=== PATIENT | male | born 1970 | race Two or more races ===

== ENCOUNTER 2021-09-17 10:18 | Emergency (ER) | payer MEDICAID ==
[~2021-09-17] VITALS: Ht 177.8 cm; Wt 104.3 kg
[2021-09-17 11:06] LABS: Basophils # (auto) 0.1 10 ^3/uL (0-0.2); Basophils % (auto) 0.7 % (0.0-2.0); Mean Corpuscular Hemoglobin 29.9 pg (28.0-32.0); Monocytes # (auto) 0.6 10 ^3/uL (0-1.3)
[2021-09-17 11:08] LABS: Eosinophils # (auto) 0.5 10 ^3/uL (0-0.8); Eosinophils % (auto) 5.9 % (0.0-7.0); Hematocrit 43.5 % (41.0-53.0); Lymphocytes # (auto) 2.5 10 ^3/uL (0.4-5.4); Lymphocytes % (auto) 32.8 % (10.0-50.0); Mean Corpuscular Hgb Conc. 34.5 g/dL (32.0-36.0); Mean Corpuscular Volume 86.8 fL (80.0-100.0); Monocytes % (auto) 8.2 % (0.0-12.0); Neutrophils % (auto) 52.4 % (37.0-80.0); Nucleated Red Blood Cells % 0.3 %; Red Blood Cells 5.01 10^6/uL (4.5-5.90); Red Cell Distribution Width 13.9 % (11.8-14.3); White Blood Cell 7.7 10^3/uL (4.4-10.8)
[2021-09-17 11:33] LABS: Albumin 3.7 g/dL (3.4-5.0); Calcium 8.6 mg/dL (8.5-10.1)
[2021-09-17 11:37] LABS: BUN/Creatinine Ratio 16.5; Bilirubin, Total 0.8 mg/dL (0.2-1.0); Total Protein 7.8 g/dL (6.4-8.2)
[2021-09-17 14:00] VITALS: BP 118/74
== END 2021-09-17 14:14 | disposition home or self-care (01) ==
LOC: EDBD 10:18 → ER 10:18
DX: R07.89 Other chest pain (principal); F41.9 Anxiety disorder, unspecified; R11.2 Nausea with vomiting, unspecified; J44.9 Chronic obstructive pulmonary disease, unspecified; M10.9 Gout, unspecified; E78.5 Hyperlipidemia, unspecified; I10 Essential (primary) hypertension; I25.2 Old myocardial infarction; Z95.1 Presence of aortocoronary bypass graft
CPT/HCPCS: 36415; 71045; 80053; 83735; 84484; 85025; 93005

== ENCOUNTER 2024-01-12 10:57 | Inpatient (IN) | payer MEDICAID ==
[~2024-01-12] VITALS: Ht 172.7 cm; Wt 91.5 kg
[2024-01-12] MEDS: ONDANSETRON HCL 4 MG/2 ML VIAL IV ONE (11:15)
[2024-01-12 11:32] LABS: Basophils # (auto) 0 10 ^3/uL (0-0.2); Basophils % (auto) 0.3 % (0.0-2.0); Eosinophils # (auto) 0.3 10 ^3/uL (0-0.8); Hematocrit 46.4 % (41.0-53.0); Hemoglobin 15.8 g/dL (13.5-17.5); Lymphocytes # (auto) 2.3 10 ^3/uL (0.4-5.4); Lymphocytes % (auto) 27.4 % (10.0-50.0); Mean Corpuscular Hemoglobin 30.6 pg (28.0-32.0); Mean Corpuscular Hgb Conc. 34.1 g/dL (32.0-36.0); Mean Corpuscular Volume 89.6 fL (80.0-100.0); Monocytes # (auto) 0.8 10 ^3/uL (0-1.3); Neutrophils # (auto) 4.9 10 ^3/uL (1.6-8.6); Neutrophils % (auto) 58.3 % (37.0-80.0); Nucleated Red Blood Cells % 0.1 %; Red Blood Cells 5.18 10^6/uL (4.5-5.90); Red Cell Distribution Width 13.3 % (11.8-14.3); White Blood Cell 8.4 10^3/uL (4.4-10.8)
[2024-01-12 11:51] LABS: Alanine Aminotransferase 30 U/L (7-40); Albumin 4.6 g/dL (3.2-4.8); Alkaline Phosphatase 65 U/L (46-116); Anion Gap 5 (5-15); Aspartate Aminotransferase 20 U/L (13-40); BUN/Creatinine Ratio 23.3 (10.0-20.0); Blood Urea Nitrogen 27 mg/dL (9-23); Carbon Dioxide 29 mmol/L (20-30); Chloride 107 mmol/L (98-107); Glucose 105 mg/dL (74-106); Potassium 3.6 mmol/L (3.5-5.1); Sodium 141 mmol/L (136-145)
[2024-01-12 11:52] LABS: Bilirubin, Direct 0.4 mg/dL (<0.3); Bilirubin, Total 1.1 mg/dL (0.2-1.0); Total Protein 7.2 g/dL (5.7-8.2)
[2024-01-12 11:55] VITALS: PULSE 60; RESP 14; O2SAT 97
[2024-01-12 12:09] LABS: Lipase 61 U/L (12-53)
[2024-01-12 12:10] LABS: Magnesium 1.9 mg/dL (1.6-2.6)
[2024-01-12] MEDS ORDERED: MORPHINE SULFATE INJ 2 MG/ml SYRG IV PRN (14:30)
[2024-01-12] MEDS ORDERED: NITROGLYCERIN 0.4 MG SL TAB SL PRN (14:30)
[2024-01-12] MEDS ORDERED: ONDANSETRON HCL 4 MG/2 ML VIAL IV PRN (14:30)
[2024-01-12] MEDS ORDERED: ACETAMINOPHEN 325 MG TAB PO PRN (14:30)
[2024-01-12] MEDS ORDERED: OMEP20TA PO (20:07)
[2024-01-12] MEDS ORDERED: LISI-713 PO (20:10)
[2024-01-12] MEDS ORDERED: AML5T PO (20:10)
[2024-01-12] MEDS ORDERED: CHLO25TA2 PO (20:14)
[2024-01-12] MEDS ORDERED: SIMV-268 PO (20:14)
[2024-01-12] MEDS ORDERED: FLUO20TA36 PO (20:14)
[2024-01-12] MEDS ORDERED: ASPI81CH59 PO (20:14)
[2024-01-12] MEDS ORDERED: CARV12.544 PO (20:14)
[2024-01-12] MEDS ORDERED: ALL100T PO (20:14)
[2024-01-12] MEDS ORDERED: ALLO100T PO (21:08)
[2024-01-12] MEDS ORDERED: AMLO1TAB23 PO (21:08)
[2024-01-12] MEDS ORDERED: SIMV20TA20 PO (21:08)
[2024-01-12] MEDS ORDERED: LISI40TA16 PO (21:08)
[2024-01-12] MEDS ORDERED: FLUO20CA90 PO (21:08)
[2024-01-12] MEDS ORDERED: AMLO1TAB22 PO (21:08)
[2024-01-12] MEDS ORDERED: FURO40TA4 PO (21:08)
[2024-01-12] MEDS ORDERED: ASPI-325 PO (21:08)
[2024-01-12] MEDS: SODIUM CHLOR 0.9% PF (SALINE LOCK) 10ML VIAL/SYR IV SCH (22:00)
[2024-01-13] VITALS (8 sets, daily range): BP systolic 113–137; BP diastolic 76–96; PULSE 60–78; RESP 17–21; TEMP 97.7–98.3; O2SAT 93–97
[2024-01-13] MEDS: ENOXAPARIN SOD 40 MG/0.4 ML SYRINGE SC SCH (10:02)
[2024-01-13] MEDS: HYDROcodone-ACET 5/325MG TAB PO PRN (13:27)
[2024-01-13] MEDS: TEMAZEPAM 15 MG CAP PO ONE (23:30)
[2024-01-14] VITALS (9 sets, daily range): BP systolic 102–140; BP diastolic 77–99; PULSE 62–80; RESP 17–19; TEMP 97.5–98.2; O2SAT 93–96
[2024-01-14] MEDS: ADENOSINE 80 MG in GIVE UN-DILUTED 0 ML IV STA (10:25)
[2024-01-14 11:57] LABS: Basophils # (auto) 0 10 ^3/uL (0-0.2); Basophils % (auto) 0.4 % (0.0-2.0); Eosinophils # (auto) 0.3 10 ^3/uL (0-0.8); Eosinophils % (auto) 3.5 % (0.0-7.0); Hematocrit 50.1 % (41.0-53.0); Hemoglobin 17.4 g/dL (13.5-17.5); Lymphocytes # (auto) 2.1 10 ^3/uL (0.4-5.4); Lymphocytes % (auto) 22.9 % (10.0-50.0); Mean Corpuscular Hemoglobin 30.7 pg (28.0-32.0); Mean Corpuscular Hgb Conc. 34.8 g/dL (32.0-36.0); Mean Corpuscular Volume 88.1 fL (80.0-100.0); Monocytes # (auto) 0.9 10 ^3/uL (0-1.3); Monocytes % (auto) 10.1 % (0.0-12.0); Neutrophils # (auto) 5.6 10 ^3/uL (1.6-8.6); Neutrophils % (auto) 63.1 % (37.0-80.0); Nucleated Red Blood Cells % 0.2 %; Red Blood Cells 5.69 10^6/uL (4.5-5.90); Red Cell Distribution Width 13.1 % (11.8-14.3)
[2024-01-14 12:05] LABS: Chloride 105 mmol/L (98-107); Potassium 3.5 mmol/L (3.5-5.1); Sodium 140 mmol/L (136-145)
[2024-01-14 12:06] LABS: Anion Gap 7 (5-15); Calcium 9.9 mg/dL (8.5-10.1); Carbon Dioxide 28 mmol/L (20-30)
[2024-01-14 12:11] LABS: Glucose 111 mg/dL (74-106); Triglycerides 120 mg/dL (< 150)
[2024-01-14 12:12] LABS: LDL Cholesterol 102 mg/dL (< 100)
[2024-01-14 12:13] LABS: Cholesterol 146 mg/dL (< 200); HDL Cholesterol 32 mg/dL (40-59)
[2024-01-14] MEDS: amLODIPine BESYLATE 5 MG TAB PO SCH (12:31)
[2024-01-14] MEDS: LISINOPRIL 20 MG TAB PO SCH (12:32)
[2024-01-14] MEDS: ASPirin 81 mg TAB PO SCH (12:32)
[2024-01-14] MEDS: ALLOPURINOL 100 MG TAB PO SCH (12:32)
[2024-01-14 12:47] LABS: Lipase 49 U/L (12-53)
[2024-01-14 13:52] LABS: BUN/Creatinine Ratio 17.3 (10.0-20.0); Blood Urea Nitrogen 19 mg/dL (9-23)
[2024-01-14] MEDS: ATORVASTATIN 20 MG TAB PO SCH (21:17)
[2024-01-15 00:37] VITALS: BP 116/79; PULSE 66; RESP 14; TEMP 98.5; O2SAT 93
[2024-01-15 04:58] VITALS: BP 122/85; PULSE 67; RESP 14; TEMP 98.4; O2SAT 97
[2024-01-15 07:30] VITALS: PULSE 88; O2SAT 96
[2024-01-15 08:33] VITALS: BP 125/94; PULSE 89; RESP 16; TEMP 97.9; O2SAT 98
[2024-01-15 09:15] LABS: Basophils # (auto) 0 10 ^3/uL (0-0.2); Basophils % (auto) 0.4 % (0.0-2.0); Eosinophils # (auto) 0.4 10 ^3/uL (0-0.8); Eosinophils % (auto) 4.2 % (0.0-7.0); Hematocrit 51.2 % (41.0-53.0); Hemoglobin 17.6 g/dL (13.5-17.5); Lymphocytes # (auto) 2.5 10 ^3/uL (0.4-5.4); Lymphocytes % (auto) 23.3 % (10.0-50.0); Mean Corpuscular Hemoglobin 30.8 pg (28.0-32.0); Mean Corpuscular Hgb Conc. 34.3 g/dL (32.0-36.0); Mean Corpuscular Volume 89.7 fL (80.0-100.0); Monocytes # (auto) 0.8 10 ^3/uL (0-1.3); Monocytes % (auto) 7.7 % (0.0-12.0); Neutrophils % (auto) 64.4 % (37.0-80.0); Nucleated Red Blood Cells % 0.1 %; Red Blood Cells 5.71 10^6/uL (4.5-5.90); Red Cell Distribution Width 13.2 % (11.8-14.3); White Blood Cell 10.8 10^3/uL (4.4-10.8)
[2024-01-15 09:25] LABS: Chloride 103 mmol/L (98-107); Potassium 3.4 mmol/L (3.5-5.1); Sodium 139 mmol/L (136-145)
[2024-01-15 09:26] LABS: Anion Gap 8 (5-15); Carbon Dioxide 28 mmol/L (20-30)
[2024-01-15 09:31] LABS: BUN/Creatinine Ratio 15.6 (10.0-20.0); Blood Urea Nitrogen 20 mg/dL (9-23); Glucose 204 mg/dL (74-106)
[2024-01-15 13:00] VITALS: BP 109/78; PULSE 83; RESP 17; TEMP 97.8; O2SAT 96
[2024-01-15 16:00] VITALS: BP 125/94; PULSE 89; RESP 16; TEMP 36.6; O2SAT 97
== END 2024-01-15 16:37 | disposition home or self-care (01) | DRG 198 ==
LOC: EDBD 10:57 → ER 10:57 → TELE 14:20 → TELE-WESTW 17:40
PROVIDERS: ADMIT Internal Medicine Pulmonary Disease; ATTEND Internal Medicine Pulmonary Disease
DX: I25.118 Atherosclerotic heart disease of native coronary artery with other forms of angina pectoris (principal); E66.01 Morbid (severe) obesity due to excess calories; E78.5 Hyperlipidemia, unspecified; I10 Essential (primary) hypertension; I25.2 Old myocardial infarction; J44.9 Chronic obstructive pulmonary disease, unspecified; M10.9 Gout, unspecified; Z95.1 Presence of aortocoronary bypass graft; I45.10 Unspecified right bundle-branch block; Z68.30 Body mass index [BMI] 30.0-30.9, adult; Z71.3 Dietary counseling and surveillance
CPT/HCPCS: 36415; 71045; 78452; 80048; 80061; 80076; 83036; 83690; 83735; 83880; 84443; 84484; 85025; 85379; 93005; 93017; 93306; 96372; 96374; G0378; J0153

== ENCOUNTER 2024-05-04 08:56 | Inpatient (IN) | payer MEDICAID ==
[~2024-05-04] VITALS: Ht 170.2 cm; Wt 95.8 kg
[~2024-05-04 08:56] MED LIST: ALL100T PO; ALLO100T PO; AMLO1TAB23 PO; ASPI-325 PO; ASPI81CH59 PO; CARV12.544 PO; CHLO25TA2 PO; FLUO20CA90 PO; FLUO20TA36 PO; FURO40TA4 PO; LISI-713 PO; LISI40TA16 PO; OMEP20TA PO; SIMV20TA20 PO
[2024-05-04 09:53] LABS: Hematocrit 46.6 % (41.0-53.0); Hemoglobin 16.5 g/dL (13.5-17.5); Mean Corpuscular Hemoglobin 30.9 pg (28.0-32.0); Mean Corpuscular Hgb Conc. 35.4 g/dL (32.0-36.0); Mean Corpuscular Volume 87.2 fL (80.0-100.0); Red Blood Cells 5.35 10^6/uL (4.5-5.90); Red Cell Distribution Width 13.3 % (11.8-14.3); White Blood Cell 18.1 10^3/uL (4.4-10.8)
[2024-05-04 09:57] LABS: Basophils % (manual) 0 (0.0-2.0); Blast Cells 0; Eosinophils % (manual) 0 (0-7); Metamyelocytes % 0; Myelocytes % 0; Promyelocytes % 0; Reactive Lymphocytes 0
[2024-05-04 10:03] LABS: Chloride 98 mmol/L (98-107); Potassium 2.8 mmol/L (3.5-5.1); Sodium 132 mmol/L (136-145)
[2024-05-04 10:04] LABS: Anion Gap 6 (5-15); Calcium 9.6 mg/dL (8.7-10.4); Carbon Dioxide 28 mmol/L (20-30)
[2024-05-04 10:09] LABS: Glucose 166 mg/dL (74-106)
[2024-05-04 10:15] LABS: Band Neutrophils % (manual) 1; Lymphocytes % (manual) 3 (10.0-50.0); Monocytes % (manual) 3 (0-12)
[2024-05-04 10:17] LABS: Tear Drop Cells FEW
[2024-05-04 10:18] LABS: Anisocytosis Slight; Large Platelets FEW; Platelet Estimate Adequa
[2024-05-04 10:20] LABS: BUN/Creatinine Ratio 14.8 (10.0-20.0); Blood Urea Nitrogen 18 mg/dL (9-23)
[2024-05-04 10:56] LABS: Urine Bacteria FEW /hpf (None Seen); Urine Blood 3+ /uL (Negative); Urine Color Light-Orange (Yellow); Urine Protein, UAD 2+ (Negative); Urine Specific Gravity 1.028 (1.001-1.035); Urine Urobilinogen Normal (Negative); Urine WBC 986 /hpf (0 - 3)
[2024-05-04 10:57] LABS: Urine Clarity Cloudy (Clear)
[2024-05-04] MEDS: PIPERACILLIN-TAZOB 3.375GM 100 ML IV ONE (11:51)
[2024-05-04] MEDS: POTASSIUM EFFERVESENT TAB 25 MEQ PO ONE (13:48)
[2024-05-04] MEDS: cefTRIAXone 1GM/50ML D5W 50 ML IV ONE (15:19)
[2024-05-04] MEDS: SODIUM CHLORIDE 0.9% 1,000 ML IV SCH (15:20)
[2024-05-04] MEDS: metroNIDAZOLE 500MG/100ML 100 ML IV ONE (15:20)
[2024-05-04] MEDS: ONDANSETRON HCL 4 MG/2 ML VIAL IV PRN (15:45)
[2024-05-04] MEDS: MORPHINE SULFATE INJ 2 MG/ml SYRG IV PRN (15:47)
[2024-05-04 15:56] VITALS: PULSE 110; RESP 20; O2SAT 98
[2024-05-04 15:56] LABS: Magnesium 1.4 mg/dL (1.6-2.6)
[2024-05-04] MEDS: METOCLOPRAMIDE HCL 5MG/ml INJ 2ml VIAL IV PRN (20:46)
[2024-05-04] MEDS: ACETAMINOPHEN 325 MG TAB PO PRN (20:48)
[2024-05-04] MEDS: HYDROcodone-ACET 5/325MG TAB PO PRN (20:49)
[2024-05-04] MEDS: metroNIDAZOLE 500MG/100ML 100 ML IV SCH (22:00)
[2024-05-04] MEDS: CARVEDILOL 12.5 MG TAB PO SCH (22:00)
[2024-05-04] MEDS: POTASSIUM CHL 20MEQ/100ML 100 ML IV SCH (22:01)
[2024-05-05 00:35] LABS: Chloride 97 mmol/L (98-107); Potassium 3.2 mmol/L (3.5-5.1); Sodium 133 mmol/L (136-145)
[2024-05-05 00:36] LABS: Anion Gap 7 (5-15); Carbon Dioxide 29 mmol/L (20-30)
[2024-05-05 00:37] LABS: Calcium 9.7 mg/dL (8.7-10.4)
[2024-05-05 00:41] LABS: Glucose 120 mg/dL (74-106)
[2024-05-05 00:42] LABS: BUN/Creatinine Ratio 15.2 (10.0-20.0); Blood Urea Nitrogen 24 mg/dL (9-23)
[2024-05-05] MEDS: POTASSIUM CHL 20MEQ/100ML 100 ML IV SCH (02:45)
[2024-05-05 04:37] LABS: Alanine Aminotransferase 18 U/L (7-40); Albumin 4.2 g/dL (3.2-4.8); Alkaline Phosphatase 48 U/L (46-116); Anion Gap 6 (5-15); Aspartate Aminotransferase 10 U/L (13-40); BUN/Creatinine Ratio 16.3 (10.0-20.0); Blood Urea Nitrogen 24 mg/dL (9-23); Calcium 9.4 mg/dL (8.7-10.4); Carbon Dioxide 31 mmol/L (20-30); Chloride 98 mmol/L (98-107); Glucose 125 mg/dL (74-106); Sodium 135 mmol/L (136-145)
[2024-05-05 04:38] LABS: Bilirubin, Total 1.5 mg/dL (0.2-1.0)
[2024-05-05 07:28] LABS: Basophils # (auto) 0 10 ^3/uL (0-0.2); Eosinophils # (auto) 0 10 ^3/uL (0-0.8); Eosinophils % (auto) 0.1 % (0.0-7.0); Hematocrit 41.3 % (41.0-53.0); Hemoglobin 14.6 g/dL (13.5-17.5); Lymphocytes # (auto) 0.7 10 ^3/uL (0.4-5.4); Lymphocytes % (auto) 5.5 % (10.0-50.0); Mean Corpuscular Hemoglobin 30.9 pg (28.0-32.0); Mean Corpuscular Hgb Conc. 35.3 g/dL (32.0-36.0); Mean Corpuscular Volume 87.6 fL (80.0-100.0); Monocytes # (auto) 1.5 10 ^3/uL (0-1.3); Neutrophils # (auto) 10.5 10 ^3/uL (1.6-8.6); Neutrophils % (auto) 82.4 % (37.0-80.0); Nucleated Red Blood Cells % 0.2 %; Red Blood Cells 4.71 10^6/uL (4.5-5.90); Red Cell Distribution Width 13.1 % (11.8-14.3); White Blood Cell 12.7 10^3/uL (4.4-10.8)
[2024-05-05 07:50] VITALS: PULSE 92; RESP 20; O2SAT 95
[2024-05-05] MEDS ORDERED: ASPirin-EC 81 mg tab PO SCH (10:00)
[2024-05-05] MEDS ORDERED: PANTOPRAZOLE 40 MG TAB PO SCH (10:00)
[2024-05-05] MEDS ORDERED: PATIENTS OWN MEDICATION (Lisinopril (Zestril) 1 TAB) PO SCH (10:00)
[2024-05-05] MEDS ORDERED: FLUoxetine HCL 20 MG CAP PO SCH (10:00)
[2024-05-05] MEDS: FUROSEMIDE 40 MG TAB PO SCH (10:00)
[2024-05-05] MEDS: ALLOPURINOL 100 MG TAB PO SCH (10:00)
[2024-05-05] MEDS: ENOXAPARIN SOD 40 MG/0.4 ML SYRINGE SC SCH (10:33)
[2024-05-05] MEDS: cefTRIAXone 1GM/50ML D5W 50 ML IV SCH (10:33)
[2024-05-05] MEDS: FLUoxetine HCL 20 MG CAP PO SCH (10:34)
[2024-05-05] MEDS: ASPirin 81 mg TAB PO SCH (10:35)
[2024-05-05] MEDS: amLODIPine BESYLATE 5 MG TAB PO SCH (10:35)
[2024-05-05] MEDS: LISINOPRIL 20 MG TAB PO SCH (10:37)
[2024-05-05] MEDS: PANTOPRAZOLE 40 MG TAB PO SCH (12:31)
[2024-05-05 13:45] VITALS: BP 126/46; PULSE 90; RESP 18; TEMP 100.2; O2SAT 96
[2024-05-05 14:14] VITALS: BP 126/86; PULSE 90; RESP 18; TEMP 100.2; O2SAT 96
[2024-05-05] MEDS ORDERED: IOHEXOL 300 MG/ML 100ML BOTTLE IJ ONE (14:15)
[2024-05-05] MEDS: SODIUM CHLORIDE 0.9% 1,000 ML IV SCH (16:35)
[2024-05-05 17:00] VITALS: BP 114/74; PULSE 88; RESP 17; TEMP 98.5; O2SAT 94
[2024-05-05] MEDS: POTASSIUM CHL 20 Meq TABLET PO ONE (17:05)
[2024-05-05 20:00] VITALS: O2SAT 99
[2024-05-05 21:00] VITALS: BP_SYST 112; BP_SYST 98; BP_DIAS 65; BP_DIAS 76; PULSE 74; PULSE 85; RESP 16; RESP 17; TEMP 97.8; TEMP 98.4; O2SAT 95; O2SAT 97
[2024-05-05] MEDS: MELATONIN 5 MG TAB PO PRN (21:58)
[2024-05-06 01:00] VITALS: BP 113/86; PULSE 72; RESP 17; TEMP 98.3; O2SAT 92
[2024-05-06 05:00] VITALS: BP 114/77; PULSE 71; RESP 17; TEMP 98.1; O2SAT 97
[2024-05-06 06:07] LABS: Chloride 102 mmol/L (98-107); Potassium 3.1 mmol/L (3.5-5.1); Sodium 137 mmol/L (136-145)
[2024-05-06 06:08] LABS: Anion Gap 6 (5-15); Carbon Dioxide 29 mmol/L (20-30)
[2024-05-06 06:09] LABS: Calcium 9.3 mg/dL (8.7-10.4)
[2024-05-06 06:13] LABS: Basophils # (auto) 0 10 ^3/uL (0-0.2); Basophils % (auto) 0.3 % (0.0-2.0); Eosinophils # (auto) 0.1 10 ^3/uL (0-0.8); Eosinophils % (auto) 0.6 % (0.0-7.0); Hematocrit 39.6 % (41.0-53.0); Hemoglobin 14.2 g/dL (13.5-17.5); Lymphocytes # (auto) 0.9 10 ^3/uL (0.4-5.4); Lymphocytes % (auto) 11.2 % (10.0-50.0); Mean Corpuscular Hemoglobin 31.6 pg (28.0-32.0); Mean Corpuscular Hgb Conc. 35.8 g/dL (32.0-36.0); Mean Corpuscular Volume 88.3 fL (80.0-100.0); Monocytes # (auto) 1.2 10 ^3/uL (0-1.3); Monocytes % (auto) 14.4 % (0.0-12.0); Neutrophils # (auto) 6.2 10 ^3/uL (1.6-8.6); Neutrophils % (auto) 73.5 % (37.0-80.0); Nucleated Red Blood Cells % 0.1 %; Red Blood Cells 4.49 10^6/uL (4.5-5.90); Red Cell Distribution Width 13.2 % (11.8-14.3); White Blood Cell 8.4 10^3/uL (4.4-10.8)
[2024-05-06 06:14] LABS: BUN/Creatinine Ratio 16.1 (10.0-20.0); Blood Urea Nitrogen 18 mg/dL (9-23); Glucose 95 mg/dL (74-106)
[2024-05-06 06:42] LABS: INR 1.05 (0.9-1.15); Prothrombin Time 11.1 sec (9.3-11.8)
[2024-05-06 06:43] LABS: Partial Thromboplastin Time 28.8 SEC (24.5-34.5)
[2024-05-06 09:00] VITALS: BP 122/84; PULSE 77; RESP 18; TEMP 98.9; O2SAT 93
[2024-05-06] MEDS ORDERED: PANTOPRAZOLE 40 MG TAB PO SCH (10:00)
[2024-05-06] MEDS: LISINOPRIL 20 MG TAB PO SCH (10:00)
[2024-05-06] MEDS: POTASSIUM CHL 20 Meq TABLET PO ONE (10:59)
[2024-05-06 13:00] VITALS: BP 105/73; PULSE 83; RESP 19; TEMP 98.6; O2SAT 98
[2024-05-06] MEDS: ACETAMINOPHEN 325 MG TAB PO PRN (15:43)
[2024-05-06 17:00] VITALS: BP 130/91; PULSE 93; RESP 19; TEMP 98.9; O2SAT 95
[2024-05-06 21:00] VITALS: BP 109/79; PULSE 97; RESP 20; TEMP 102.7; O2SAT 96
[2024-05-07] VITALS (9 sets, daily range): BP systolic 103–151; BP diastolic 76–94; PULSE 67–83; RESP 12–21; TEMP 97.4–98.7; O2SAT 91–99
[2024-05-07 06:26] LABS: Anion Gap 6 (5-15); Calcium 8.8 mg/dL (8.7-10.4); Carbon Dioxide 28 mmol/L (20-30); Chloride 103 mmol/L (98-107); Potassium 3.2 mmol/L (3.5-5.1); Sodium 137 mmol/L (136-145)
[2024-05-07 06:31] LABS: Glucose 120 mg/dL (74-106)
[2024-05-07 06:32] LABS: BUN/Creatinine Ratio 12.6 (10.0-20.0); Blood Urea Nitrogen 13 mg/dL (9-23)
[2024-05-07 09:00] LABS: Basophils # (auto) 0.1 10 ^3/uL (0-0.2); Basophils % (auto) 0.4 % (0.0-2.0); Eosinophils # (auto) 0.1 10 ^3/uL (0-0.8); Eosinophils % (auto) 0.5 % (0.0-7.0); Hematocrit 39.7 % (41.0-53.0); Hemoglobin 14.1 g/dL (13.5-17.5); Lymphocytes # (auto) 1.2 10 ^3/uL (0.4-5.4); Lymphocytes % (auto) 8.9 % (10.0-50.0); Mean Corpuscular Hemoglobin 30.9 pg (28.0-32.0); Mean Corpuscular Hgb Conc. 35.4 g/dL (32.0-36.0); Mean Corpuscular Volume 87.4 fL (80.0-100.0); Monocytes # (auto) 1.6 10 ^3/uL (0-1.3); Monocytes % (auto) 12.3 % (0.0-12.0); Neutrophils # (auto) 10.2 10 ^3/uL (1.6-8.6); Neutrophils % (auto) 77.9 % (37.0-80.0); Nucleated Red Blood Cells % 0.1 %; Red Blood Cells 4.54 10^6/uL (4.5-5.90); Red Cell Distribution Width 12.8 % (11.8-14.3)
[2024-05-07] MEDS: POTASSIUM CHL 20 Meq TABLET PO ONE (12:08)
[2024-05-07] MEDS: LIDOCAINE 2%HCL (LOCAL ANESTH.) INJ 20ML MDV ONE (14:30)
[2024-05-07] MEDS: MIDAZOLAM HCL 2MG/2ML 2ml VIAL (1mg/ml) ONE (14:55)
[2024-05-07] MEDS: fentaNYL CITRATE 100 MCG/2 ML VL ONE (14:55)
[2024-05-08] VITALS (8 sets, daily range): BP systolic 114–148; BP diastolic 68–90; PULSE 61–84; RESP 16–20; TEMP 97.5–98.4; O2SAT 91–99
[2024-05-08 05:25] LABS: Basophils # (auto) 0.1 10 ^3/uL (0-0.2); Basophils % (auto) 0.8 % (0.0-2.0); Eosinophils # (auto) 0.1 10 ^3/uL (0-0.8); Eosinophils % (auto) 0.6 % (0.0-7.0); Hematocrit 41.2 % (41.0-53.0); Hemoglobin 14.5 g/dL (13.5-17.5); Lymphocytes # (auto) 1.5 10 ^3/uL (0.4-5.4); Mean Corpuscular Hemoglobin 30.8 pg (28.0-32.0); Mean Corpuscular Hgb Conc. 35.1 g/dL (32.0-36.0); Mean Corpuscular Volume 87.9 fL (80.0-100.0); Monocytes # (auto) 1.3 10 ^3/uL (0-1.3); Monocytes % (auto) 10.3 % (0.0-12.0); Neutrophils # (auto) 9.5 10 ^3/uL (1.6-8.6); Neutrophils % (auto) 76.3 % (37.0-80.0); Nucleated Red Blood Cells % 0.1 %; Red Blood Cells 4.69 10^6/uL (4.5-5.90); White Blood Cell 12.5 10^3/uL (4.4-10.8)
[2024-05-08 05:41] LABS: Chloride 102 mmol/L (98-107); Potassium 3.8 mmol/L (3.5-5.1); Sodium 137 mmol/L (136-145)
[2024-05-08 05:42] LABS: Anion Gap 6 (5-15); Calcium 9.2 mg/dL (8.7-10.4); Carbon Dioxide 29 mmol/L (20-30)
[2024-05-08 05:47] LABS: Blood Urea Nitrogen 14 mg/dL (9-23); Glucose 121 mg/dL (74-106)
[2024-05-08] MEDS ORDERED: ceFAZolin 2 GM/D5W50ml 50 ML IV ONE (08:31)
[2024-05-08] MEDS ORDERED: BUPIVACAINE 0.25% INJ 50ML VIAL ONE (09:07)
[2024-05-08] MEDS ORDERED: LIDOCAINE W/ EPINEPHRINE 2% INJ 20ML VIAL ONE (09:07)
[2024-05-08] MEDS ORDERED: GABAPENTIN 400 MG CAP ONE (09:29)
[2024-05-08] MEDS ORDERED: CELECOXIB 100 MG CAP ONE (09:29)
[2024-05-08] MEDS ORDERED: GABAPENTIN 400 MG CAP PO ONE (09:30)
[2024-05-08] MEDS ORDERED: ACETAMINOPHEN IV 1000 MG/100ML (10MG/ML) IV ONE (09:30)
[2024-05-08] MEDS ORDERED: CELECOXIB 100 MG CAP PO ONE (09:30)
[2024-05-08] MEDS ORDERED: ACETAMINOPHEN IV 100 ML IV ONE (09:30)
[2024-05-08] MEDS ORDERED: KETAMINE 50mg/ML 1ml syringe ONE (09:32)
[2024-05-08] MEDS ORDERED: LIDOCAINE 2% (LOCAL ANESTH.) PF 5ml SDV ONE (09:33)
[2024-05-08] MEDS ORDERED: DexAMETHasone SOD PHOS 10MG/1ML VIAL INJ ONE (09:33)
[2024-05-08] MEDS ORDERED: KETOROLAC TROMETH 30 MG/ML 1ML VIAL ONE (09:33)
[2024-05-08] MEDS ORDERED: ONDANSETRON HCL 4 MG/2 ML VIAL ONE (09:33)
[2024-05-08] MEDS ORDERED: fentaNYL CITRATE 100 MCG/2 ML VL ONE (09:33)
[2024-05-08] MEDS ORDERED: PROPOFOL 10 MG/ML 20 ML IV ONE ×2 (09:34→10:10)
[2024-05-08] MEDS ORDERED: GLYCOPYRROLATE 0.2 MG/ML 1ML VIAL ONE (09:34)
[2024-05-08] MEDS: LIDOCAINE 2%HCL (LOCAL ANESTH.) INJ 10ml MDV IJ ONE (10:00)
[2024-05-08] MEDS ORDERED: ePHEDrine SULFATE 50 MG/ML AMP ONE (10:05)
[2024-05-08] MEDS ORDERED: ceFAZolin 1GM VL ONE (10:47)
[2024-05-08] MEDS ORDERED: hydrALAZINE HCL 20 MG/ML VL IV PRN (11:30)
[2024-05-08] MEDS ORDERED: ePHEDrine SULFATE 50 MG/ML AMP IV PRN (11:30)
[2024-05-08] MEDS ORDERED: fentaNYL CITRATE 100 MCG/2 ML VL IV PRN (11:30)
[2024-05-08] MEDS ORDERED: FLUMAZENIL 0.1 MG/ML INJ 10ML MDV IV PRN (11:30)
[2024-05-08] MEDS ORDERED: NALOXONE HCL 0.4 MG/ML VIAL IV PRN (11:30)
[2024-05-08] MEDS ORDERED: HYDROmorphone HCL 2 MG/ML VL/or syr IV PRN (11:30)
[2024-05-08] MEDS ORDERED: ONDANSETRON HCL 4 MG/2 ML VIAL IV PRN (11:30)
[2024-05-08] MEDS ORDERED: oxyCODONE HCL 5MG TAB PO PRN (11:30)
[2024-05-09] VITALS (8 sets, daily range): BP systolic 117–148; BP diastolic 70–94; PULSE 59–73; RESP 15–22; TEMP 97.5–97.9; O2SAT 93–97
[2024-05-09 06:20] LABS: Basophils # (auto) 0 10 ^3/uL (0-0.2); Basophils % (auto) 0.2 % (0.0-2.0); Eosinophils # (auto) 0 10 ^3/uL (0-0.8); Eosinophils % (auto) 0.1 % (0.0-7.0); Hemoglobin 14.7 g/dL (13.5-17.5); Lymphocytes # (auto) 1.9 10 ^3/uL (0.4-5.4); Mean Corpuscular Hemoglobin 31.4 pg (28.0-32.0); Mean Corpuscular Hgb Conc. 35.7 g/dL (32.0-36.0); Monocytes # (auto) 1.4 10 ^3/uL (0-1.3); Monocytes % (auto) 10.1 % (0.0-12.0); Neutrophils # (auto) 10.9 10 ^3/uL (1.6-8.6); Neutrophils % (auto) 76.6 % (37.0-80.0); Nucleated Red Blood Cells % 0.1 %; Red Blood Cells 4.66 10^6/uL (4.5-5.90); White Blood Cell 14.3 10^3/uL (4.4-10.8)
[2024-05-09 06:31] LABS: Alanine Aminotransferase 25 U/L (7-40); Albumin 3.9 g/dL (3.2-4.8); Alkaline Phosphatase 59 U/L (46-116); Anion Gap 8 (5-15); Aspartate Aminotransferase 16 U/L (13-40); BUN/Creatinine Ratio 16.7 (10.0-20.0); Bilirubin, Total 0.7 mg/dL (0.2-1.0); Blood Urea Nitrogen 19 mg/dL (9-23); Calcium 9.2 mg/dL (8.7-10.4); Carbon Dioxide 28 mmol/L (20-30); Chloride 102 mmol/L (98-107); Glucose 99 mg/dL (74-106); Potassium 3.4 mmol/L (3.5-5.1); Sodium 138 mmol/L (136-145); Total Protein 6.6 g/dL (5.7-8.2)
[2024-05-10] VITALS (8 sets, daily range): BP systolic 129–144; BP diastolic 83–97; PULSE 65–83; RESP 18–21; TEMP 97.6–98.1; O2SAT 93–100
[2024-05-11 01:00] VITALS: BP 144/91; PULSE 62
[2024-05-11 05:00] VITALS: BP 138/92; PULSE 63; TEMP 97.6; O2SAT 98
[2024-05-11 08:00] VITALS: RESP 18; O2SAT 97
[2024-05-11 08:35] VITALS: BP 150/99; PULSE 59; RESP 19; TEMP 97.7; O2SAT 94
[2024-05-11] MEDS ORDERED: CIPR-173 PO (12:41)
[2024-05-11 12:42] VITALS: BP 138/90; PULSE 67; RESP 19; TEMP 98.1; O2SAT 96
[2024-05-11 14:32] VITALS: BP 138/90; PULSE 67; RESP 19; TEMP 36.7; O2SAT 96
== END 2024-05-11 15:30 | disposition home or self-care (01) | DRG 710 ==
LOC: EDBD 08:56 → ER 08:56 → OVERFLOW 14:59 → CENTRAL 05-05 13:45
PROVIDERS: ADMIT Registered Nurse; ATTEND Internal Medicine
PROC: 0YQ60ZZ Repair Left Inguinal Region, Open Approach (ICD-10-PCS; principal; 2024-05-08 09:41)
PROC: 0T943ZZ Drainage of Left Kidney Pelvis, Percutaneous Approach (ICD-10-PCS; 2024-05-09)
PROC: BT121ZZ Fluoroscopy of Left Kidney using Low Osmolar Contrast (ICD-10-PCS; 2024-05-09)
DX: A41.9 Sepsis, unspecified organism (principal); N17.0 Acute kidney failure with tubular necrosis; K40.30 Unilateral inguinal hernia, with obstruction, without gangrene, not specified as recurrent; E11.22 Type 2 diabetes mellitus with diabetic chronic kidney disease; N13.6 Pyonephrosis; I12.9 Hypertensive chronic kidney disease with stage 1 through stage 4 chronic kidney disease, or unspecified chronic kidney disease; I86.1 Scrotal varices; K57.30 Diverticulosis of large intestine without perforation or abscess without bleeding; M10.9 Gout, unspecified; N43.3 Hydrocele, unspecified; N18.9 Chronic kidney disease, unspecified; J44.9 Chronic obstructive pulmonary disease, unspecified; I25.10 Atherosclerotic heart disease of native coronary artery without angina pectoris; E66.9 Obesity, unspecified; F32.A Depression, unspecified; E87.6 Hypokalemia; J98.4 Other disorders of lung; E78.5 Hyperlipidemia, unspecified; Z68.33 Body mass index [BMI] 33.0-33.9, adult; Z79.899 Other long term (current) drug therapy; Z79.82 Long term (current) use of aspirin; Z95.1 Presence of aortocoronary bypass graft; Z93.6 Other artificial openings of urinary tract status
CPT/HCPCS: 36415; 71045; 74018; 74176; 74178; 74425; 76870; 80048; 80053; 80061; 81001; 83036; 83605; 83735; 85007; 85025; 85027; 85610; 85730; 86850; 86900; 86901; 87081; 87086; 87088; 87186; 93005; 93306; 96361; 96365; 96366; 96367; 96368; 96372; 96375; 99152; C1769; G0378; J0131; J0690; J1100; J1885; J2001; J2250; J2405; J2543; J2704; J3480; J3490

== ENCOUNTER → 2024-06-04 | Outpatient (CLI) | payer MEDICAID ==
[~2024-06-04] MED LIST changes: +CIPR-173 PO; +FLUO-470 PO; -FLUO20CA90 PO; -FLUO20TA36 PO; +FLUO20TA42 PO
[2024-06-04] MEDS: REGADENOSON 0.4 MG/5 ML SYRG IV ONE ×2 (12:44→13:00)
== END | disposition home or self-care (01) ==
LOC: XYW 11:35
PROVIDERS: ATTEND Internal Medicine
DX: Z01.810 Encounter for preprocedural cardiovascular examination (principal); I10 Essential (primary) hypertension; I25.10 Atherosclerotic heart disease of native coronary artery without angina pectoris; J44.9 Chronic obstructive pulmonary disease, unspecified; R94.31 Abnormal electrocardiogram [ECG] [EKG]; F12.20 Cannabis dependence, uncomplicated
CPT/HCPCS: 78452; 93017; A9500; J2785

== ENCOUNTER 2024-06-30 10:03 | Inpatient (IN) | payer MEDICAID ==
[~2024-06-30] VITALS: Ht 167.6 cm; Wt 98.7 kg
[~2024-06-30 10:03] MED LIST changes: +NITR100C6 PO; +TRAM50TA2 PO
[2024-06-30 11:42] LABS: Basophils # (auto) 0.1 10 ^3/uL (0-0.2); Basophils % (auto) 0.6 % (0.0-2.0); Eosinophils # (auto) 0.6 10 ^3/uL (0-0.8); Eosinophils % (auto) 6.5 % (0.0-7.0); Hematocrit 42.4 % (41.0-53.0); Hemoglobin 14.7 g/dL (13.5-17.5); Lymphocytes # (auto) 2.7 10 ^3/uL (0.4-5.4); Lymphocytes % (auto) 30.1 % (10.0-50.0); Mean Corpuscular Hemoglobin 30.5 pg (28.0-32.0); Mean Corpuscular Hgb Conc. 34.7 g/dL (32.0-36.0); Mean Corpuscular Volume 87.9 fL (80.0-100.0); Monocytes # (auto) 0.8 10 ^3/uL (0-1.3); Monocytes % (auto) 8.7 % (0.0-12.0); Neutrophils # (auto) 4.9 10 ^3/uL (1.6-8.6); Neutrophils % (auto) 54.1 % (37.0-80.0); Nucleated Red Blood Cells % 0.2 %; Platelet Count (auto) 259 10^3/uL (140-450); Red Blood Cells 4.82 10^6/uL (4.5-5.90); Red Cell Distribution Width 14.2 % (11.8-14.3); White Blood Cell 9.1 10^3/uL (4.4-10.8)
[2024-06-30 12:03] LABS: Alanine Aminotransferase 25 U/L (7-40); Albumin 4.8 g/dL (3.2-4.8); Alkaline Phosphatase 58 U/L (46-116); Anion Gap 6 (5-15); Aspartate Aminotransferase 15 U/L (13-40); BUN/Creatinine Ratio 15.4 (10.0-20.0); Bilirubin, Total 0.7 mg/dL (0.2-1.0); Blood Urea Nitrogen 19 mg/dL (9-23); Calcium 9.7 mg/dL (8.7-10.4); Carbon Dioxide 29 mmol/L (20-30); Chloride 107 mmol/L (98-107); Glucose 115 mg/dL (74-106); Lipase 47 U/L (12-53); Potassium 3.3 mmol/L (3.5-5.1); Sodium 142 mmol/L (136-145); Total Protein 7.8 g/dL (5.7-8.2)
[2024-06-30] MEDS: POTASSIUM EFFERVESENT TAB 25 MEQ PO ONE (13:33)
[2024-06-30 13:38] VITALS: PULSE 87; RESP 16; O2SAT 96
[2024-06-30] MEDS ORDERED: DOCUSATE SOD 100 MG CAP PO PRN (14:45)
[2024-06-30] MEDS ORDERED: MORPHINE SULFATE INJ 2 MG/ml SYRG IV PRN ×2 (14:45→15:45)
[2024-06-30] MEDS ORDERED: hydrALAZINE HCL 20 MG/ML VL IV PRN (14:45)
[2024-06-30] MEDS ORDERED: ONDANSETRON HCL 4 MG/2 ML VIAL IV PRN (14:45)
[2024-06-30] MEDS ORDERED: NITROGLYCERIN 0.4 MG SL TAB SL PRN (15:45)
[2024-06-30] MEDS: SODIUM CHLOR 0.9% PF (SALINE LOCK) 10ML VIAL/SYR IV SCH (22:00)
[2024-06-30] MEDS: CARVEDILOL 3.125 MG TAB PO SCH (22:00)
[2024-06-30 22:30] VITALS: BP 138/89; PULSE 75; RESP 18; TEMP 98.1; O2SAT 95
[2024-06-30 22:37] VITALS: BP 138/89; PULSE 75; RESP 18; TEMP 98.1; O2SAT 95
[2024-07-01] MEDS: ATORVASTATIN 20 MG TAB PO SCH (00:46)
[2024-07-01 05:00] VITALS: BP 136/94; PULSE 76; RESP 20; TEMP 97.7; O2SAT 100
[2024-07-01] MEDS: HYDROcodone-ACET 5/325MG TAB PO PRN (05:22)
[2024-07-01 07:13] LABS: Basophils # (auto) 0 10 ^3/uL (0-0.2); Basophils % (auto) 0.4 % (0.0-2.0); Eosinophils # (auto) 0.5 10 ^3/uL (0-0.8); Eosinophils % (auto) 5.9 % (0.0-7.0); Hematocrit 39.9 % (41.0-53.0); Hemoglobin 14.2 g/dL (13.5-17.5); Lymphocytes # (auto) 2.1 10 ^3/uL (0.4-5.4); Lymphocytes % (auto) 25.6 % (10.0-50.0); Mean Corpuscular Hgb Conc. 35.6 g/dL (32.0-36.0); Mean Corpuscular Volume 87.1 fL (80.0-100.0); Monocytes # (auto) 0.7 10 ^3/uL (0-1.3); Monocytes % (auto) 8.7 % (0.0-12.0); Neutrophils # (auto) 4.8 10 ^3/uL (1.6-8.6); Neutrophils % (auto) 59.4 % (37.0-80.0); Nucleated Red Blood Cells % 0.1 %; Platelet Count (auto) 285 10^3/uL (140-450); Red Blood Cells 4.58 10^6/uL (4.5-5.90); White Blood Cell 8.1 10^3/uL (4.4-10.8)
[2024-07-01 07:32] LABS: Alanine Aminotransferase 23 U/L (7-40); Albumin 4.4 g/dL (3.2-4.8); Alkaline Phosphatase 54 U/L (46-116); Anion Gap 8 (5-15); Aspartate Aminotransferase 14 U/L (13-40); BUN/Creatinine Ratio 15.9 (10.0-20.0); Blood Urea Nitrogen 17 mg/dL (9-23); Calcium 9.6 mg/dL (8.7-10.4); Carbon Dioxide 27 mmol/L (20-30); Chloride 104 mmol/L (98-107); Glucose 134 mg/dL (74-106); Potassium 3.3 mmol/L (3.5-5.1); Sodium 139 mmol/L (136-145)
[2024-07-01 07:33] LABS: Total Protein 7.2 g/dL (5.7-8.2)
[2024-07-01 07:53] VITALS: PULSE 73
[2024-07-01 09:00] VITALS: BP 136/97; PULSE 70; RESP 20; TEMP 97.8; O2SAT 96
[2024-07-01] MEDS ORDERED: OMEP-448 PO (09:08)
[2024-07-01] MEDS ORDERED: AMLO1TAB22 PO (09:08)
[2024-07-01] MEDS: FAMOTIDINE (10MG/ML) 2ML VL IV SCH (10:47)
[2024-07-01] MEDS: ASPirin 81 mg TAB PO SCH (10:47)
[2024-07-01] MEDS: LISINOPRIL 20 MG TAB PO SCH (10:48)
[2024-07-01] MEDS: ACETAMINOPHEN 325 MG TAB PO PRN (10:52)
[2024-07-01 13:00] VITALS: BP 141/98; PULSE 66; RESP 16; TEMP 97.9; O2SAT 98
[2024-07-01] MEDS: POTASSIUM CHL 20 Meq TABLET PO ONE (14:22)
[2024-07-01 17:09] VITALS: BP 145/94; PULSE 76; RESP 20; TEMP 98.1; O2SAT 97
[2024-07-01] MEDS: cefTRIAXone 1GM/50ML D5W 50 ML IV ONE (17:35)
[2024-07-01 20:14] LABS: Urine Bacteria None Seen /hpf (None Seen); Urine Blood 2+ /uL (Negative); Urine Clarity Clear (Clear); Urine Color Light-Yellow (Yellow); Urine Mucus FEW (None Seen); Urine Protein, UAD 1+ (Negative); Urine Specific Gravity 1.017 (1.001-1.035); Urine Urobilinogen Normal (Negative); Urine WBC 60 /hpf (0 - 3)
[2024-07-02] MEDS ORDERED: cefTRIAXone 1GM/50ML D5W 50 ML IV SCH (09:00)
== END 2024-07-01 19:22 | disposition left against medical advice (07) | DRG 466 ==
LOC: ER 10:03 → EDBD 10:03 → TELE-WESTW 15:32 → TELE 15:32 → TELE-WESTW 22:14
PROVIDERS: ADMIT Nurse Practitioner Family; ATTEND Internal Medicine Geriatric Medicine
DX: T83.022A Displacement of nephrostomy catheter, initial encounter (principal); N13.30 Unspecified hydronephrosis; E78.5 Hyperlipidemia, unspecified; I25.10 Atherosclerotic heart disease of native coronary artery without angina pectoris; J44.9 Chronic obstructive pulmonary disease, unspecified; Z53.29 Procedure and treatment not carried out because of patient's decision for other reasons; M10.9 Gout, unspecified; I10 Essential (primary) hypertension; Y73.2 Prosthetic and other implants, materials and accessory gastroenterology and urology devices associated with adverse incidents; E87.6 Hypokalemia; Z95.1 Presence of aortocoronary bypass graft; I25.2 Old myocardial infarction; Z82.49 Family history of ischemic heart disease and other diseases of the circulatory system
CPT/HCPCS: 36415; 74176; 80053; 81001; 83690; 85025; 87086; 87088; 87186; G0378; J3490

== ENCOUNTER 2024-07-01 21:59 | Inpatient (IN) | payer MEDICAID ==
[~2024-07-01] VITALS: Ht 167.6 cm; Wt 96.5 kg
[~2024-07-01 21:59] MED LIST changes: +AMLO1TAB22 PO; +OMEP-448 PO
[2024-07-02 08:00] VITALS: PULSE 89; RESP 16; O2SAT 97
[2024-07-02] MEDS: cefTRIAXone 1GM/50ML D5W 50 ML IV ONE (08:30)
[2024-07-02] MEDS: ONDANSETRON HCL 4 MG/2 ML VIAL IV ONE (11:00)
[2024-07-02] MEDS: HYDROmorphone HCL 2 MG/ML VL/or syr IV ONE (11:00)
[2024-07-02 11:25] LABS: Urine Bacteria None Seen /hpf (None Seen)
[2024-07-02 11:45] LABS: Urine Blood 2+ /uL (Negative); Urine Clarity Turbid (Clear); Urine Color Yellow (Yellow); Urine Mucus FEW (None Seen); Urine Protein, UAD 1+ (Negative); Urine Specific Gravity 1.021 (1.001-1.035); Urine Urobilinogen Normal (Negative); Urine WBC 67 /hpf (0 - 3); Urine pH 5.5 (5.0-9.0)
[2024-07-02 11:46] LABS: Basophils # (auto) 0 10 ^3/uL (0-0.2); Basophils % (auto) 0.3 % (0.0-2.0); Eosinophils # (auto) 0.3 10 ^3/uL (0-0.8); Eosinophils % (auto) 4.1 % (0.0-7.0); Hematocrit 43.9 % (41.0-53.0); Hemoglobin 15.3 g/dL (13.5-17.5); Lymphocytes # (auto) 2.5 10 ^3/uL (0.4-5.4); Lymphocytes % (auto) 30.3 % (10.0-50.0); Mean Corpuscular Hemoglobin 30.7 pg (28.0-32.0); Mean Corpuscular Hgb Conc. 34.7 g/dL (32.0-36.0); Mean Corpuscular Volume 88.3 fL (80.0-100.0); Monocytes # (auto) 0.9 10 ^3/uL (0-1.3); Monocytes % (auto) 11.1 % (0.0-12.0); Neutrophils # (auto) 4.4 10 ^3/uL (1.6-8.6); Neutrophils % (auto) 54.2 % (37.0-80.0); Nucleated Red Blood Cells % 0.3 %; Platelet Count (auto) 217 10^3/uL (140-450); Red Blood Cells 4.97 10^6/uL (4.5-5.90); Red Cell Distribution Width 14.4 % (11.8-14.3); White Blood Cell 8.1 10^3/uL (4.4-10.8)
[2024-07-02] MEDS ORDERED: DOCUSATE SOD 100 MG CAP PO PRN ×2 (12:00→12:15)
[2024-07-02] MEDS ORDERED: ACETAMINOPHEN 325 MG TAB PO PRN (12:00)
[2024-07-02] MEDS ORDERED: ONDANSETRON HCL 4 MG/2 ML VIAL IV PRN ×2 (12:00→12:15)
[2024-07-02] MEDS ORDERED: MORPHINE SULFATE INJ 2 MG/ml SYRG IV PRN ×2 (12:00→12:15)
[2024-07-02] MEDS ORDERED: NITROGLYCERIN 0.4 MG SL TAB SL PRN ×2 (12:00→12:15)
[2024-07-02] MEDS: SODIUM CHLORIDE 0.9% 1,000 ML IV ONE (12:00)
[2024-07-02 12:04] LABS: Alanine Aminotransferase 29 U/L (7-40); Albumin 4.8 g/dL (3.2-4.8); Alkaline Phosphatase 60 U/L (46-116); Anion Gap 5 (5-15); Aspartate Aminotransferase 14 U/L (13-40); BUN/Creatinine Ratio 14.9 (10.0-20.0); Bilirubin, Total 0.9 mg/dL (0.2-1.0); Blood Urea Nitrogen 18 mg/dL (9-23); Calcium 10.6 mg/dL (8.7-10.4); Carbon Dioxide 30 mmol/L (20-30); Chloride 107 mmol/L (98-107); Glucose 89 mg/dL (74-106); Potassium 3.4 mmol/L (3.5-5.1); Sodium 142 mmol/L (136-145); Total Protein 7.8 g/dL (5.7-8.2)
[2024-07-02 12:10] LABS: Lipase 42 U/L (12-53)
[2024-07-02] MEDS ORDERED: LISI40TA16 PO (13:19)
[2024-07-02] MEDS ORDERED: ALLO100T PO (13:19)
[2024-07-02] MEDS ORDERED: hydrALAZINE HCL 20 MG/ML VL IV PRN (13:30)
[2024-07-02 16:25] VITALS: RESP 18
[2024-07-02 17:00] VITALS: BP 145/95; PULSE 93; RESP 20; TEMP 97.7; O2SAT 96
[2024-07-02 18:54] LABS: Prothrombin Time 10.6 sec (9.3-11.8)
[2024-07-02 20:00] VITALS: PULSE 84; PULSE 85; RESP 99; O2SAT 99
[2024-07-02 21:00] VITALS: BP 136/88; PULSE 85; RESP 20; TEMP 98.1; O2SAT 99
[2024-07-02] MEDS: CARVEDILOL 12.5 MG TAB PO SCH (22:01)
[2024-07-02] MEDS: ACETAMINOPHEN 325 MG TAB PO PRN (22:03)
[2024-07-03] VITALS (11 sets, daily range): BP systolic 123–155; BP diastolic 90–107; PULSE 68–88; RESP 11–20; TEMP 97.8–97.9; O2SAT 92–100
[2024-07-03] MEDS ORDERED: MELATONIN 5 MG TAB PO ONE
[2024-07-03] MEDS ORDERED: cefTRIAXone 1GM/50ML D5W 50 ML IV SCH (09:00)
[2024-07-03] MEDS: CHLORTHALIDONE 25 MG TAB PO SCH (10:00)
[2024-07-03] MEDS: ALLOPURINOL 100 MG TAB PO SCH (10:00)
[2024-07-03] MEDS: ASPirin 81 mg TAB PO SCH (10:00)
[2024-07-03] MEDS: ENOXAPARIN SOD 40 MG/0.4 ML SYRINGE SC SCH (10:00)
[2024-07-03] MEDS: amLODIPine BESYLATE 5 MG TAB PO SCH (10:00)
[2024-07-03] MEDS: cefTRIAXone 1GM/50ML D5W 50 ML IV SCH (10:26)
[2024-07-03] MEDS: HEPARIN IN NS 1000Units/500mL 1,500 ML ONE (11:49)
[2024-07-03] MEDS: IODIXANOL 320MG/ML 100ML BTL IV ONE (11:49)
[2024-07-03] MEDS: LIDOCAINE 2%HCL (LOCAL ANESTH.) INJ 20ML MDV ONE (12:01)
[2024-07-03] MEDS: VERAPAMIL 2.5MG/ML INJ 2ML VIAL IV ONE (12:06)
[2024-07-03] MEDS: HEPARIN SODIUM (PORCINE) 5000 UNITS/ML 1ML VIAL ONE (12:06)
[2024-07-03] MEDS: fentaNYL CITRATE 100 MCG/2 ML VL ONE (14:19)
[2024-07-03] MEDS: MIDAZOLAM HCL 2MG/2ML 2ml VIAL (1mg/ml) ONE (14:19)
[2024-07-03] MEDS: ANGIOMAX 250 MG VIAL IV ONE (14:29)
[2024-07-03] MEDS: SODIUM CHL 0.9% 0 ML ONE (14:30)
[2024-07-03 16:55] LABS: Basophils # (auto) 0 10 ^3/uL (0-0.2); Basophils % (auto) 0.4 % (0.0-2.0); Eosinophils # (auto) 0.5 10 ^3/uL (0-0.8); Eosinophils % (auto) 5.6 % (0.0-7.0); Hematocrit 39.8 % (41.0-53.0); Hemoglobin 14.2 g/dL (13.5-17.5); Lymphocytes # (auto) 2.6 10 ^3/uL (0.4-5.4); Lymphocytes % (auto) 29.7 % (10.0-50.0); Mean Corpuscular Hemoglobin 31.1 pg (28.0-32.0); Mean Corpuscular Hgb Conc. 35.8 g/dL (32.0-36.0); Mean Corpuscular Volume 87.1 fL (80.0-100.0); Monocytes # (auto) 0.8 10 ^3/uL (0-1.3); Monocytes % (auto) 9.3 % (0.0-12.0); Neutrophils # (auto) 4.9 10 ^3/uL (1.6-8.6); Nucleated Red Blood Cells % 0.2 %; Platelet Count (auto) 272 10^3/uL (140-450); Red Blood Cells 4.57 10^6/uL (4.5-5.90); Red Cell Distribution Width 13.9 % (11.8-14.3); White Blood Cell 8.8 10^3/uL (4.4-10.8)
[2024-07-03 17:12] LABS: Alanine Aminotransferase 26 U/L (7-40); Alkaline Phosphatase 61 U/L (46-116); Anion Gap 7 (5-15); Aspartate Aminotransferase 18 U/L (13-40); Blood Urea Nitrogen 15 mg/dL (9-23); Calcium 9.9 mg/dL (8.7-10.4); Carbon Dioxide 28 mmol/L (20-30); Chloride 106 mmol/L (98-107); Glucose 104 mg/dL (74-106); Potassium 3.6 mmol/L (3.5-5.1); Sodium 141 mmol/L (136-145)
[2024-07-03 17:13] LABS: Albumin 4.5 g/dL (3.2-4.8); Bilirubin, Total 1.1 mg/dL (0.2-1.0); Total Protein 7.5 g/dL (5.7-8.2)
[2024-07-03] MEDS: ATORVASTATIN 20 MG TAB PO SCH (22:05)
[2024-07-04] VITALS (8 sets, daily range): BP systolic 130–149; BP diastolic 84–98; PULSE 67–97; RESP 15–18; TEMP 97.2–98.2; O2SAT 93–98
[2024-07-04] MEDS: PANTOPRAZOLE 40 MG TAB PO SCH (05:32)
[2024-07-04 08:05] LABS: Basophils # (auto) 0 10 ^3/uL (0-0.2); Basophils % (auto) 0.3 % (0.0-2.0); Eosinophils # (auto) 0.5 10 ^3/uL (0-0.8); Hematocrit 41.7 % (41.0-53.0); Hemoglobin 14.8 g/dL (13.5-17.5); Lymphocytes % (auto) 24.3 % (10.0-50.0); Mean Corpuscular Hemoglobin 31.3 pg (28.0-32.0); Mean Corpuscular Hgb Conc. 35.5 g/dL (32.0-36.0); Mean Corpuscular Volume 88.1 fL (80.0-100.0); Monocytes # (auto) 0.7 10 ^3/uL (0-1.3); Monocytes % (auto) 9.1 % (0.0-12.0); Neutrophils % (auto) 60.3 % (37.0-80.0); Nucleated Red Blood Cells % 0.1 %; Platelet Count (auto) 188 10^3/uL (140-450); Red Blood Cells 4.73 10^6/uL (4.5-5.90); Red Cell Distribution Width 13.9 % (11.8-14.3); White Blood Cell 8.2 10^3/uL (4.4-10.8)
[2024-07-04 08:24] LABS: Alanine Aminotransferase 32 U/L (7-40); Albumin 4.7 g/dL (3.2-4.8); Alkaline Phosphatase 61 U/L (46-116); Anion Gap 8 (5-15); Aspartate Aminotransferase 14 U/L (13-40); Bilirubin, Total 1.3 mg/dL (0.2-1.0); Blood Urea Nitrogen 15 mg/dL (9-23); Calcium 9.8 mg/dL (8.7-10.4); Carbon Dioxide 27 mmol/L (20-30); Chloride 106 mmol/L (98-107); Cholesterol 157 mg/dL (< 200); Glucose 109 mg/dL (74-106); HDL Cholesterol 31 mg/dL (40-59); LDL Cholesterol 107 mg/dL (< 100); Phosphorus 3.3 mg/dL (2.4-5.1); Potassium 3.6 mmol/L (3.5-5.1); Sodium 141 mmol/L (136-145); Total Protein 7.6 g/dL (5.7-8.2); Triglycerides 178 mg/dL (< 150)
[2024-07-04] MEDS: IOHEXOL 350 MG/ML 100ML IJ ONE (08:59)
[2024-07-04] MEDS: IODIXANOL 320MG/ML 100ML BTL IV ONE (09:04)
[2024-07-04] MEDS: LIDOCAINE 2%HCL (LOCAL ANESTH.) INJ 20ML MDV ONE (09:04)
[2024-07-04] MEDS: MIDAZOLAM HCL 2MG/2ML 2ml VIAL (1mg/ml) ONE (09:04)
[2024-07-04] MEDS: fentaNYL CITRATE 100 MCG/2 ML VL ONE (09:04)
[2024-07-04] MEDS: cefTRIAXone 1GM/50ML D5W 50 ML IV ONE (09:24)
[2024-07-04] MEDS ORDERED: PATIENTS OWN MEDICATION (Simvastatin 1 TAB) PO SCH (10:00)
[2024-07-04] MEDS: LISINOPRIL 20 MG TAB PO SCH (11:10)
[2024-07-04] MEDS: FLUoxetine HCL 20 MG CAP PO SCH (11:19)
[2024-07-04] MEDS ORDERED: CEPH250C2 PO (15:42)
[2024-07-04] MEDS ORDERED: ATOR20TA50 PO (15:42)
[2024-07-04] MEDS ORDERED: ACET-1882 PO (15:42)
== END 2024-07-04 15:19 | disposition home or self-care (01) | DRG 466 ==
LOC: ER 21:59 → TELE 07-02 12:31 → TELE-WESTW 07-02 16:35
PROVIDERS: ADMIT Internal Medicine Pulmonary Disease; ATTEND Internal Medicine Pulmonary Disease
PROC: 4A023N7 Measurement of Cardiac Sampling and Pressure, Left Heart, Percutaneous Approach (ICD-10-PCS; principal; 2024-07-03)
PROC: B211YZZ Fluoroscopy of Multiple Coronary Arteries using Other Contrast (ICD-10-PCS; 2024-07-03)
PROC: B218YZZ Fluoroscopy of Left Internal Mammary Bypass Graft using Other Contrast (ICD-10-PCS; 2024-07-03)
PROC: B21FYZZ Fluoroscopy of Other Bypass Graft using Other Contrast (ICD-10-PCS; 2024-07-03)
PROC: 0T9430Z Drainage of Left Kidney Pelvis with Drainage Device, Percutaneous Approach (ICD-10-PCS; 2024-07-04)
DX: T83.022A Displacement of nephrostomy catheter, initial encounter (principal); I13.0 Hypertensive heart and chronic kidney disease with heart failure and stage 1 through stage 4 chronic kidney disease, or unspecified chronic kidney disease; I50.32 Chronic diastolic (congestive) heart failure; N13.6 Pyonephrosis; E78.5 Hyperlipidemia, unspecified; I25.10 Atherosclerotic heart disease of native coronary artery without angina pectoris; J44.9 Chronic obstructive pulmonary disease, unspecified; E87.6 Hypokalemia; Y73.2 Prosthetic and other implants, materials and accessory gastroenterology and urology devices associated with adverse incidents; E66.01 Morbid (severe) obesity due to excess calories; N18.9 Chronic kidney disease, unspecified; M10.9 Gout, unspecified; F12.90 Cannabis use, unspecified, uncomplicated; K21.9 Gastro-esophageal reflux disease without esophagitis; F32.A Depression, unspecified; I25.2 Old myocardial infarction; Z95.1 Presence of aortocoronary bypass graft; Z68.33 Body mass index [BMI] 33.0-33.9, adult; Z82.49 Family history of ischemic heart disease and other diseases of the circulatory system
CPT/HCPCS: 36415; 50432; 71046; 74425; 80053; 80061; 81001; 82306; 82607; 83036; 83690; 83735; 84100; 84443; 84550; 85025; 85610; 93459; 96361; 96365; 99152; G0378; J2250; Q9967

== ENCOUNTER 2024-08-31 11:12 | Inpatient (IN) | payer MEDICAID ==
[~2024-08-31] VITALS: Ht 170.2 cm; Wt 101.4 kg
[~2024-08-31 11:12] MED LIST changes: +ACET-1882 PO; -ALLO100T PO; +ALLO300T2 PO; -AMLO1TAB23 PO; -ASPI-325 PO; +ATOR20TA50 PO; +CEPH250C2 PO; -CIPR-173 PO; -FLUO20TA42 PO; -LISI-713 PO; -NITR100C6 PO; -OMEP20TA PO
--- NOTE | 2024-08-31 11:39 | ED.PDOC ---
History of Present Illness HPI Comments 54-year-old male who comes in with chief complaint of possible resistant urinary tract infection. 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 Chief Complaint: Wound Check Time Seen by MD: 11:15 Primary Care Provider: SUNSHINE Reviewed Notes: Nurses Notes, Medications, Allergies (No allergies to medications diuretics I x-ray at an eye signed [employer] was isolated) Allergies: Coded Allergies: NO KNOWN ALLERGIES (Unverified , 05/11/16) Home Meds Active Scripts Cephalexin Base (Cephalexin) 250 Mg Cap, 250 MG PO QID for 5 Days, #20 CAP Prov:KRISTINE FERREIRA RESIDENT 07/04/24 Atorvastatin Calcium (ATORVASTATIN CALCIUM) 20 Mg Tab, 40 MG PO HS for 30 Days, #60 TAB Prov:KRISTINE FERREIRA RESIDENT 07/04/24 Acetaminophen (Acetaminophen) 325 Mg Tab, 650 MG PO Q4HP PRN for 10 Days, #100 TAB Prov:KRISTINE FERREIRA RESIDENT 07/04/24 Reported Medications Lisinopril (Lisinopril) 40 Mg Tab, 1 TAB PO DAILY 07/02/24 Tramadol Hcl (Tramadol Hcl) 50 Mg Tab, 1 TAB PO BID for 30 Days, #60 07/01/24 Amlodipine Besylate (Amlodipine Besylate) 5 Mg Tab, 1 TAB PO DAILY for 90 Days, #90 07/01/24 Omeprazole (Omeprazole Dr) 40 Mg Cap, 1 CAP PO QAM for 90 Days, #90 07/01/24 Furosemide (Furosemide) 40 Mg Tab, 1 TAB PO DAILY 01/12/24 Fluoxetine HCl (Fluoxetine HCl) 20 Mg Cap, 1 CAP PO DAILY for 90 Days, #90 01/12/24 Carvedilol (Carvedilol) 12.5 Mg Tab, 1 TAB PO BID for 90 Days, #180 01/12/24 Chlorthalidone (Chlorthalidone) 25 Mg Tab, 1 TAB PO DAILY for 90 Days 01/12/24 Aspirin (Aspirin Low Dose) 81 Mg Chw, 1 TAB PO DAILY for 90 Days, #90 01/12/24 Allopurinol (ZYLOPRIM TABLET) 100 Mg Tb, 1 TAB PO DAILY for 90 Days, #90 01/12/24 Information Source: Patient Mode of Arrival: Ambulatory Severity: Moderate Timing: Days Duration: Since onset Prehospital treatment: None Location: Left flank pain Past Medical History PAST MEDICAL HISTORY: COPD, Gout, High Lipids, HTN, [place] Surgical History: CABG, Hernia Repair Surgical History (Other): Left nephrostomy Family History Family History: Family hx of heart vishnu Family History (Other): Dementia Social History Smoker: Non-Smoker Alcohol: Denies ETOH Use Drugs: Cocaine, Marijuana, Methamphetamine Lives In: Home Constitutional: denies: chills, diaphoresis, fatigue, fever, malaise, sweats, weakness, others EENTM: denies: blurred vision, double vision, ear bleeding, ear discharge, ear drainage, ear pain, ear ringing, eye pain, eye redness, hearing loss, mouth pain, mouth swelling, nasal discharge, nose bleeding, nose congestion, nose pain, photophobia, tearing, throat pain, throat swelling, voice changes, others Respiratory: denies: cough, hemoptysis, orthopnea, SOB at rest, shortness of breath, SOB with excertion, stridor, wheezing, others Cardiovascular: denies: chest pain, dizzy spells, diaphoresis, Dyspnea on exertion, edema, irregular heart beat, left arm pain, lightheadedness, palpitations, PND, syncope, others Gastrointestinal: denies: abdomen distended, abdominal pain, blood streaked bowels, constipated, diarrhea, dysphagia, difficulty swallowing, hematemesis, melena, nausea, poor appetite, poor fluid intake, rectal bleeding, rectal pain, vomiting, others Genitourinary: reports: others (Left nephrostomy this is); denies: burning, dysuria, flank pain, frequency, hematuria, incontinence, penile discharge, penile sore, pain, testicle pain, testicle swelling, urgency Neurological: denies: dizziness, fainting, headache, left sided numbness, left sided weakness, numbness, paresthesia, pre-existing deficit, right sided numbness, right sided weakness, seizure, speech problems, tingling, tremors, weakness, others Musculoskeletal: denies: back pain, gout, joint pain, joint swelling, muscle pain, muscle stiffness, neck pain, others Integumetry: denies: bruises, change in color, change in hair/nails, dryness, laceration, lesions, lumps, rash, wounds, others Allergic/Immunocompromised: denies: Difficulty Healing, Frequent Infections, Hives, Itching, others Hematologic/Lymphatic: denies: anemia, blood clots, easy bleeding, easy bruising, swollen glands, others Endocrine: denies: excessive hunger, excessive sweating, excessive thirst, excessive urination, flushing, intolerance to cold, intolerance to heat, unexplained weight gain, unexplained weight loss, others Psychiatric: denies: anxiety, bipolar disorder, depression, hopeless, panic dis order, schizophrenia, sleepless, suicidal, others Physical Exam General Appearance: Moderate Distress HEENT: Normal ENT Inspection, Pharynx Normal, TMs Normal Neck: Full Range of Motion, Non-Tender, Normal, Normal Inspection Respiratory: Chest Non-Tender, Lungs Clear, No Accessory Muscle Use, No Respiratory Distress, Normal Breath Sounds Cardiovascular: No Edema, No JVD, No Murmur, No Gallop, Normal Peripheral Pulses, Regular Rate/Rhythm Breast Exam: Deferred Gastrointestinal: No Organomegaly, Non Tender, No Pulsatile Mass, Normal Bowel Sounds, Soft Genitalia: Deferred Pelvic: Deferred Rectal: Deferred Extremities: No calf tenderness, Normal capillary refill, No pedal edema Musculoskeletal : Location: Left Extremity Location: Back Apperance: Tenderness: Mild, Other (Nephrostomy in place) Neurologic: Alert, water chemist II-XII nml as Tested, No Motor Deficits, Normal Affect, Normal Mood, No Sensory Deficits Cerebellar Function: Normal Reflexes: Normal Skin: Dry, Normal Color, Warm Lymphatic: No Adenopathy Was a procedure done? Was a procedure done?: No Differential Dx Considerations may include: Generalized weakness, nephrostomy, UTI, sepsis X-Ray, Labs, Meds, VS Vital Signs Date Time Temp Pulse Resp B/P (MAP) Pulse Ox O2 Delivery O2 Flow Rate FiO2 08/31/24 14:45 71 15 105/71 (82) 96 08/31/24 13:22 77 18 106/74 (85) 96 08/31/24 13:22 77 18 96 Room Air 08/31/24 11:28 97.4 82 17 132/96 (108) 97 Lab Test 08/31/24 13:59 08/31/24 11:51 Range/Units Lactic Acid Level Pending 2.7 *H 0.4-2.0 mmol/L White Blood Count 7.2 4.4-10.8 10^3/uL Red Blood Count 4.94 4.5-5.90 10^6/uL Hemoglobin 15.1 13.5-17.5 g/dL Hematocrit 43.5 41.0-53.0 % Mean Corpuscular Volume 88.1 80.0-100.0 fL Mean Corpuscular Hemoglobin 30.5 28.0-32.0 pg Mean Corpuscular Hemoglobin Concent 34.7 32.0-36.0 g/dL Red Cell Distribution Width 15.0 H 11.8-14.3 % Platelet Count 275 140-450 10^3/uL Mean Platelet Volume 8.2 6.9-10.8 fL Neutrophils (%) (Auto) 49.4 37.0-80.0 % Lymphocytes (%) (Auto) 33.5 10.0-50.0 % Monocytes (%) (Auto) 8.8 0.0-12.0 % Eosinophils (%) (Auto) 7.7 H 0.0-7.0 % Basophils (%) (Auto) 0.6 0.0-2.0 % Neutrophils # (Auto) 3.6 1.6-8.6 10 ^3/uL Lymphocytes # (Auto) 2.4 0.4-5.4 10 ^3/uL Monocytes # (Auto) 0.6 0-1.3 10 ^3/uL Eosinophils # (Auto) 0.6 0-0.8 10 ^3/uL Basophils # (Auto) 0 0-0.2 10 ^3/uL Nucleated Red Blood Cells 0.2 % Sodium Level 140 136-145 mmol/L Potassium Level 3.9 3.5-5.1 mmol/L Chloride Level 106 98-107 mmol/L Carbon Dioxide Level 29 20-31 mmol/L Anion Gap 5 5-15 Blood Urea Nitrogen 26 H 9-23 mg/dL Creatinine 1.18 0.700-1.30 mg/dL Glomerular Filtration Rate Calc 72 >90 mL/min BUN/Creatinine Ratio 22.0 H 10.0-20.0 Serum Glucose 135 H 74-106 mg/dL Calcium Level 10.2 8.7-10.4 mg/dL Current Medications Medications (Trade) Dose Ordered Sig/Jackie Route Start Time Stop Time Status Last Admin Sodium Chloride 500 ml @ 500 mls/hr Q1H ONCE IV 08/31/24 11:30 08/31/24 12:29 DC 08/31/24 13:20 The patient's CBC is within normal limits The lactic acid level is elevated at 2.7 The chemistry panel is within normal limits The patient was given normal saline at a 500 cc bolus At this time, the patient was being admitted to the hospitalist At this time, the patient is being admitted to the hospitalist The patient will be started on IV antibiotics for the infections urine We are still pending a urine test on this patient but he did receive results from [facility] which michael his blood in the past Images Reviewed?: Images reviewed and evaluated by me Time of 1ST Reevaluation: 12:09 Reevaluation 1ST: Unchanged Patient Education/Counseling: Diagnosis, Treatment, Prognosis Family Education/Counseling: No Family Present Departure 1 Departure Time of Disposition: 15:06 Impression: Primary Impression: Left flank pain Additional Impressions: Elevated lactic acid level UTI (urinary tract infection) Qualified Codes: N30.00 - Acute cystitis without hematuria Disposition: ADMITTED INPATIENT Admit to: Med Surg Condition: Fair Critical Care Note Critical Care Time?: No Stability Stability form required: Yes Unstable for transfer: ED Physician Assesment (Clinical assesment) Heart Score Heart Score: Heart Score Response (Comments) Value History N/A 0 EKG N/A 0 Age N/A 0 Risk Factors N/A 0 Troponin N/A 0 Total 0 YEIMY RAIN MD Aug 31, 2024 11:39
[2024-08-31 12:11] LABS: Basophils # (auto) 0 10 ^3/uL (0-0.2); Basophils % (auto) 0.6 % (0.0-2.0); Eosinophils # (auto) 0.6 10 ^3/uL (0-0.8); Eosinophils % (auto) 7.7 % (0.0-7.0); Hematocrit 43.5 % (41.0-53.0); Hemoglobin 15.1 g/dL (13.5-17.5); Lymphocytes # (auto) 2.4 10 ^3/uL (0.4-5.4); Lymphocytes % (auto) 33.5 % (10.0-50.0); Mean Corpuscular Hemoglobin 30.5 pg (28.0-32.0); Mean Corpuscular Hgb Conc. 34.7 g/dL (32.0-36.0); Mean Corpuscular Volume 88.1 fL (80.0-100.0); Monocytes # (auto) 0.6 10 ^3/uL (0-1.3); Monocytes % (auto) 8.8 % (0.0-12.0); Neutrophils # (auto) 3.6 10 ^3/uL (1.6-8.6); Neutrophils % (auto) 49.4 % (37.0-80.0); Nucleated Red Blood Cells % 0.2 %; Platelet Count (auto) 275 10^3/uL (140-450); Red Blood Cells 4.94 10^6/uL (4.5-5.90); White Blood Cell 7.2 10^3/uL (4.4-10.8)
[2024-08-31 12:20] LABS: Chloride 106 mmol/L (98-107); Potassium 3.9 mmol/L (3.5-5.1); Sodium 140 mmol/L (136-145)
[2024-08-31 12:21] LABS: Anion Gap 5 (5-15); Calcium 10.2 mg/dL (8.7-10.4); Carbon Dioxide 29 mmol/L (20-31)
[2024-08-31 12:26] LABS: Blood Urea Nitrogen 26 mg/dL (9-23); Glucose 135 mg/dL (74-106)
[2024-08-31] MEDS: SODIUM CHLORIDE 0.9% 500 ML IV ONE (13:20)
[2024-08-31 13:23] LABS: Lactic Acid w/Reflex 2.7 mmol/L (0.4-2.0)
[2024-08-31 20:00] VITALS: PULSE 68; RESP 16; O2SAT 97
[2024-08-31] MEDS ORDERED: NITROGLYCERIN 0.4 MG SL TAB SL PRN (22:00)
[2024-08-31] MEDS ORDERED: MORPHINE SULFATE INJ 2 MG/ml SYRG IV PRN (22:00)
[2024-08-31] MEDS ORDERED: HYDROcodone-ACET 5/325MG TAB PO PRN (22:00)
[2024-08-31] MEDS: SODIUM CHLOR 0.9% PF (SALINE LOCK) 10ML VIAL/SYR IV SCH (22:04)
--- NOTE | 2024-08-31 22:45 | DVHHPRES ---
History of Present Illness Resident Creating Document: CJ ALY RESIDENT History of Present Illness This is a 54-year-old male with past medical history of hypertension, hyperlipidemia, gout, COPD, CAD with s/p CABG , s/p nephrostomy tube on the left side presented to the ED with a chief complaint of left flank pain and repeated urinary infection for last 1 month prior to this admission. Patient states that he has a nephrostomy tube on the left side 5 months ago and after that he has frequent urinary infection and resistant to most of the oral antibiotics. He also mentioned that he is scheduled for angiogram with possible stenting after clearance of urinary infection that prompted this visit. Patient denies fever, chills, chest pain, shortness of breath, dizziness, nausea, vomiting or any change in the bowel habit. Past Medical History Hypertension, hyperlipidemia, gout, COPD, coronary artery disease Past Surgical History CABG, hernia repair, Lt nephrostomy tube Family History Family history of heart disease Smoke: No ALCOHOL: none Drugs: None Lives: with Family Review of Systems Constitutional: No: Fever, Chills, Sweats, Weakness, Malaise, Other Eyes: No: Pain, Vision change, Conjunctivae inflammation, Eyelid inflammation, Other, Redness ENT: No: Ear pain, Ear discharge, Nose pain, Nose discharge, Nose congestion, Mouth pain, Mouth swelling, Throat pain, Throat swelling, Other Respiratory: No: Cough, Dry, Shortness of breath, SOB with excertion, Wheezing, Hemoptysis, Pleuritic Pain, Sputum, Wheezing, Other Cardiovascular: No: Chest Pain, Palpitations, Orthopnea, Paroxysmal Noc. Dyspnea, Edema, Lt Headedness, Other Gastrointestinal: Abdominal Pain; No: Nausea, Vomiting, Diarrhea, Constipation, Melena, Hematochezia, Other Genitourinary: No Dysuria, No Frequency, No Incontinence, No Hematuria, No Retention, No Other Musculoskeletal: No: other, neck pain, shoulder pain, arm pain, back pain, hand pain, leg pain, foot pain Skin: No: Rash, Lesions, Jaundice, Bruising, Other Neurological: No: Weakness, Numbness, Incoordination, Change in speech, Confusion, Seizures, Other Allergies: Coded Allergies: NO KNOWN ALLERGIES (Unverified , 05/11/16) Medications Current Medications Medications Dose Ordered Sig/Jackie Route Start Time Stop Time Status Last Admin Dose Admin Sodium Chloride 10 ml Q8HR IV 08/31/24 22:00 08/31/24 22:04 10 ML Acetaminophen/ Hydrocodone Bitart 1 tab Q4HP PRN PO 08/31/24 22:00 Nitroglycerin 0.4 mg Q5MINP PRN SL 08/31/24 22:00 Morphine Sulfate 2 mg Q30M PRN IV 08/31/24 22:00 Exam Vital Signs Vital Signs Date Time Temp Pulse Resp B/P (MAP) Pulse Ox O2 Delivery O2 Flow Rate FiO2 08/31/24 20:19 97.7 68 16 124/84 (97) 97 97.7 08/31/24 20:00 Room Air* 0 21 Exam Physical examination: General Appearance: Alert, Oriented X3, Cooperative, No acute distress HEENT: Atraumatic, PERRLA, EOMI, Mucous membrane moist/pink Respiratory: Clear to auscultation, Normal air movement Cardiovascular: Regular rate, Normal S1, Normal S2, No murmurs, no chest wall tenderness Abdominal: Nephrostomy tube on the left lumbar region, Normal bowel sounds, Soft, No tenderness, No hepatospenomegaly, No masses Extremities: No clubbing, No cyanosis, No edema, Normal pulses, No tenderness/swelling Skin: No rashes, No breakdown, No significant lesion Neuro: Normal gait, Normal speech, Strength at 5/5 X4 ext, Normal tone, Sensation intact. Psych/Mental Status: Mental status NL, Mood NL Labs/Xrays Labs Test 08/31/24 13:59 08/31/24 11:51 Range/Units Lactic Acid Level 1.7 0.4-2.0 mmol/L White Blood Count 7.2 4.4-10.8 10^3/uL Red Blood Count 4.94 4.5-5.90 10^6/uL Hemoglobin 15.1 13.5-17.5 g/dL Hematocrit 43.5 41.0-53.0 % Mean Corpuscular Volume 88.1 80.0-100.0 fL Mean Corpuscular Hemoglobin 30.5 28.0-32.0 pg Mean Corpuscular Hemoglobin Concent 34.7 32.0-36.0 g/dL Red Cell Distribution Width 15.0 H 11.8-14.3 % Platelet Count 275 140-450 10^3/uL Mean Platelet Volume 8.2 6.9-10.8 fL Neutrophils (%) (Auto) 49.4 37.0-80.0 % Lymphocytes (%) (Auto) 33.5 10.0-50.0 % Monocytes (%) (Auto) 8.8 0.0-12.0 % Eosinophils (%) (Auto) 7.7 H 0.0-7.0 % Basophils (%) (Auto) 0.6 0.0-2.0 % Neutrophils # (Auto) 3.6 1.6-8.6 10 ^3/uL Lymphocytes # (Auto) 2.4 0.4-5.4 10 ^3/uL Monocytes # (Auto) 0.6 0-1.3 10 ^3/uL Eosinophils # (Auto) 0.6 0-0.8 10 ^3/uL Basophils # (Auto) 0 0-0.2 10 ^3/uL Nucleated Red Blood Cells 0.2 % Sodium Level 140 136-145 mmol/L Potassium Level 3.9 3.5-5.1 mmol/L Chloride Level 106 98-107 mmol/L Carbon Dioxide Level 29 20-31 mmol/L Anion Gap 5 5-15 Blood Urea Nitrogen 26 H 9-23 mg/dL Creatinine 1.18 0.700-1.30 mg/dL Glomerular Filtration Rate Calc 72 >90 mL/min BUN/Creatinine Ratio 22.0 H 10.0-20.0 Serum Glucose 135 H 74-106 mg/dL Calcium Level 10.2 8.7-10.4 mg/dL Assessment/Plan Assessment/Plan Assessment and plan: # Lactic acidosis likely secondary to dehydration - Lactic acid trends are 2.7>1.7 - IV normal saline 500 mL bolus given. # possible urinary infection, status post left-sided nephrostomy tube - ordered UA and urine bacterial culture # DVT prophylaxis - Lovenox 40 mg sc daily Goal of care discussed with the patient for more than 23 minutes full code Plan of treatment discussed with Dr. Henry Plan discussed with: Patient, Other My Orders Orders - CJ ALY RESIDENT Procedure Category Date Status Time Admit ADMIT 08/31/24 Transmitted 21:59 Allergies ADNNA 08/31/24 In Process 21:59 Code Status CODE 08/31/24 Transmitted 21:59 Sodium Chloride Lock PHA 08/31/24 In Process (Saline Lock Ns) 22:00 Oxygen Per Hour RT 08/31/24 Transmitted 21:59 Hydrocodone-Acet PHA 08/31/24 In Process 5/325mg Tab ([place] 22:00 Complete Blood Count LAB 09/01/24 Verified 04:00 Comprehensive LAB 09/01/24 Verified Metabolic Panel 04:00 Nitroglycerin PHA 08/31/24 In Process Sublingual (Ntrostat 22:00 Morphine Sulfate PHA 08/31/24 In Process Injection 22:00 Oxygen By Nasal RT 08/31/24 Transmitted Cannula 21:59 Stat Ekg For Chest [facility] 08/31/24 In Process Pain 21:59 Notify Of Changes [facility] 08/31/24 In Process From Base 21:59 Content Publisher For [facility] 08/31/24 In Process 24 Hours 21:59 Emergency Dysrhythmia [facility] 08/31/24 In Process Protocol 21:59 Rhythm Strips Once [facility] 08/31/24 In Process Every Shift 21:59 Urinalysis LAB 08/31/24 Logged 22:14 Ct Ab Pelv W Wo CT 08/31/24 Logged Con-Oral & Iv 22:20 Hemoglobin A1c LAB 08/31/24 Logged 22:20 Thyroid Stimulating LAB 08/31/24 Logged Hormone 22:20 Vitamin B12 LAB 08/31/24 Logged 22:20 Vitamin D, 25-Hydroxy LAB 08/31/24 Logged 22:20 CJ ALY RESIDENT Aug 31, 2024 22:45
[2024-09-01] VITALS (9 sets, daily range): BP systolic 130–150; BP diastolic 47–99; PULSE 67–98; RESP 16–21; TEMP 97.2–98.5; O2SAT 95–98
[2024-09-01 04:51] LABS: Basophils # (auto) 0 10 ^3/uL (0-0.2); Basophils % (auto) 0.5 % (0.0-2.0); Eosinophils # (auto) 0.5 10 ^3/uL (0-0.8); Eosinophils % (auto) 7.8 % (0.0-7.0); Hematocrit 40.8 % (41.0-53.0); Hemoglobin 14.1 g/dL (13.5-17.5); Lymphocytes # (auto) 2.2 10 ^3/uL (0.4-5.4); Lymphocytes % (auto) 32.6 % (10.0-50.0); Mean Corpuscular Hemoglobin 30.6 pg (28.0-32.0); Mean Corpuscular Hgb Conc. 34.5 g/dL (32.0-36.0); Mean Corpuscular Volume 88.8 fL (80.0-100.0); Monocytes # (auto) 0.6 10 ^3/uL (0-1.3); Monocytes % (auto) 9.5 % (0.0-12.0); Neutrophils # (auto) 3.4 10 ^3/uL (1.6-8.6); Neutrophils % (auto) 49.6 % (37.0-80.0); Nucleated Red Blood Cells % 0.1 %; Platelet Count (auto) 281 10^3/uL (140-450); Red Cell Distribution Width 15.1 % (11.8-14.3); White Blood Cell 6.8 10^3/uL (4.4-10.8)
[2024-09-01 05:05] LABS: Alanine Aminotransferase 38 U/L (7-40); Albumin 4.6 g/dL (3.2-4.8); Alkaline Phosphatase 53 U/L (46-116); Anion Gap 4 (5-15); Aspartate Aminotransferase 21 U/L (13-40); BUN/Creatinine Ratio 17.8 (10.0-20.0); Blood Urea Nitrogen 21 mg/dL (9-23); Calcium 10.2 mg/dL (8.7-10.4); Carbon Dioxide 30 mmol/L (20-31); Chloride 108 mmol/L (98-107); Glucose 119 mg/dL (74-106); Potassium 4.1 mmol/L (3.5-5.1); Sodium 142 mmol/L (136-145)
[2024-09-01 05:06] LABS: Bilirubin, Total 0.7 mg/dL (0.2-1.0); Total Protein 7.4 g/dL (5.7-8.2)
[2024-09-01] MEDS: IOHEXOL 300 MG/ML 100ML BOTTLE IJ ONE (07:54)
[2024-09-01] MEDS: GASTROGRAFIN 30 ML SOL ONE (09:33)
--- NOTE | 2024-09-01 11:07 | DVH ---
CT ABDOMEN AND PELVIS WITH CONTRAST CLINICAL HISTORY: Lt flank pain, s/p neprostomy tube TECHNIQUE: Multidetector CT of the abdomen was performed from lung bases to pubic symphysis. Imaging was performed with IV contrast. Axial, coronal and sagittal multiplanar reformats were obtained from the axial data set by the technologist. 100 cc of Omnipaque 300 contrast was injected intraven ously. Radiation optimization: All CT scans at this facility use at least one of these dose optimization kami hniques: automated exposure control mA and/or kV adjustment per patient size (includes targeted exam s where dose is matched to clinical indication) or iterative reconstruction. Radiation Dose Information: CT Dose: CTDI volume is 21 mGy. Dose-length product is 2420 mGy*cm Comparison: CT CT AB PEL WO CON-NO ORAL OR IV on DOS: 06/30/24, CT CT AB PELVIS W WO CON-IV ONLY on DOS : 05/05/24 FINDINGS: There is a left-sided nephrostomy tube with the distal loop in the left lower pole renal collecting s ystem. There is no evidence of renal nephrolithiasis or significant hydronephrosis. There are multipl e bilateral renal cysts measuring up to approximately 2 cm. There is no discrete renal lesion. There is diffuse fatty infiltration of the liver. The gallbladder, pancreas, adrenal glands, and spleen appear within normal limits. There is no evidence of abdominal lymphadenopathy. There is no free fluid or free air. The small and large bowel loops demonstrate normal caliber. There are diverticula in the distal colo n without evidence of acute diverticulitis. The abdominal aorta and IVC appear within normal limits. There is no evidence of a ureteral calculus or hydroureter. Bladder is poorly filled limiting evaluat ion. Pelvic organ appears within normal limits. There is no evidence of a pelvic mass or lymphadenopa thy. There is no free fluid collection. Lung bases are clear. There is no acute osseous abnormality. IMPRESSION: 1. Left-sided nephrostomy catheter with the distal loop in the left lower pole renal collecting syste m. There is no evidence of nephrolithiasis or hydronephrosis. 2. Multiple bilateral renal cysts measuring up to approximately 2.0 cm. 3. Hepatic steatosis. 4. Distal colon diverticulosis. HS:Y
[2024-09-01 11:09] LABS: Urine Bacteria FEW /hpf (None Seen); Urine Blood Negative /uL (Negative); Urine Clarity Turbid (Clear); Urine Color Light-Yellow (Yellow); Urine Mucus FEW (None Seen); Urine Protein, UAD 1+ (Negative); Urine Specific Gravity 1.018 (1.001-1.035); Urine Urobilinogen Normal (Negative); Urine WBC 169 /hpf (0 - 3); Urine WBC Clumps PRESENT /hpf (None Seen)
--- NOTE | 2024-09-01 12:31 | DVHPNRES ---
Progress Note Date Seen: Sep 01, 2024 Resident Creating Document: BELINDA FINNEY RESIDENT Medical Necessity Reason Pt with a Central, PICC or Fol: No Subjective Review of Systems Patient is a 54-year-old male with past medical history of hypertension, dyslipidemia, COPD, moderate-severe left-sided hydronephrosis s/p nephrostomy tube, CAD s/p CABG 10 years ago, gout, recurrent UTIs, who came in at the instruction of his urologist. According to the patient, he is getting a ureteral surgery done at [facility] on 09/04/2024, when he went to get preoperative lab work done, he was noted to have UA positive for UTI, urine culture showing Klebsiella oxytoca probable ESBL therefore he was instructed by the operating surgeon to treat the infection. Of note, patient reports he has been taking Macrobid for the past 1 month. Patient denies having any dysuria symptoms. Patient states he is also scheduled to get angiography with possible stenting after he is done with his urologic procedure. Past surgical history: Inguinal hernia repair, CABG, nephrostomy tube on the left Home medications: Amlodipine, chlorthalidone, allopurinol, carvedilol, omeprazole, fluoxetine, lisinopril, aspirin Past Hospitalization: 07/02/2024 for dislodgement of nephrostomy tube Social & Personal history: Patient lives with his . Smokes marijuana daily, 2 g per day. Denies using tobacco, alcohol or other drugs. Allergies: Denies Patient seen and examined at bedside. Patient is alert and oriented to time, place person and responding to all questions. General: Reports feeling fatigued Eyes: No Pain, No Vision change, No Conjunctivae inflammation, No Eyelid inflammation, No Other, No Redness ENT: No Ear pain, No Ear discharge, No Nose pain, No Nose discharge, Nose congestion, No Mouth pain, No Mouth swelling, No Throat pain, No Throat swelling, No Other Cardiovascular: No Chest Pain, No Palpitations, No Orthopnea, No Paroxysmal No Dyspnea, No Edema, No Lt Headedness, No Other Respiratory: No Cough, No Dry, No Shortness of breath, SOB with exertion, No Wheezing, No Hemoptysis, No Pleuritic Pain, No Sputum, No Other Gastrointestinal: No Nausea, No Vomiting, No Abdominal Pain, No Diarrhea, No Constipation, No Melena, No Hematochezia, No Other Genitourinary: No Dysuria, Frequency, No Incontinence, No Hematuria, No Retention, No Other Musculoskeletal: No other, No neck pain, No shoulder pain, No arm pain, No back pain, No hand pain, No leg pain, No foot pain Skin: No Rash, No Lesions, No Jaundice, No Bruising, No Other Objective vital signs Vital Sign Date Time Temp Pulse Resp B/P (MAP) Pulse Ox O2 Delivery O2 Flow Rate FiO2 09/01/24 10:36 97.7 67 17 147/87 (107) 97 97.7 09/01/24 10:07 Room Air* 0 21 medications Current Medications Medications Dose Ordered Sig/Jackie Route Start Time Stop Time Status Last Admin Dose Admin Sodium Chloride 10 ml Q8HR IV 08/31/24 22:00 09/01/24 06:03 10 ML Acetaminophen/ Hydrocodone Bitart 1 tab Q4HP PRN PO 08/31/24 22:00 Nitroglycerin 0.4 mg Q5MINP PRN SL 08/31/24 22:00 Morphine Sulfate 2 mg Q30M PRN IV 08/31/24 22:00 Meropenem 50 ml @ 17 mls/hr Q8HR IV 09/01/24 14:00 UNV Amlodipine Besylate 5 mg DAILY PO 09/02/24 10:00 Fluoxetine HCl 20 mg DAILY PO 09/02/24 10:00 Examination General Appearance: Cooperative. Well developed. Well nourished. NAD Head Exam: Normal inspection Neck Exam: Normal inspection. Non-tender. Normal alignment Pulmonary/Respiratory: Chest non-tender. Clear bilateral breath sounds, no crackles, no wheezing. Cardiovascular/Chest: Regular rate and rhythm. No murmurs. No JVD. Peripheral Pulses: 2+ Radial (R). 2+ Radial (L). 2+ Pedal (R). 2+ Pedal (L) Abdominal Exam: Normal bowel sounds. Soft. normal abdomen, no visible veins, Nontender. No hepatospenomegaly. No masses Ankle Exam: Negative ankle edema Lower extremities: Negative lower extremity edema Neuro/Mental Status: A&O x4. Coherent. Thoughts/Psych: Normal thought pattern. Appropriate mood and affect. Good judgement and insight Skin Exam: Normal inspection. Normal color. Warm. Dry laboratory and microbiology Laboratory Tests 09/01/24 04:20 Test 09/01/24 04:20 Range/Units Serum Glucose 119 H 74-106 mg/dL Microbiology Date/Time Source Procedure Growth Status 08/31/24 11:51 Blood Blood Culture - Preliminary NO GROWTH AFTER 24 HOURS OF INCUBATION. Resulted Labs and/or images reviewed: Labs reviewed by me, Image(s) reviewed by me Problem List/Assessment/Plan Problem List/Assessment/Plan Acute complicated cystitis S/p nephrostomy tube placement on the left - CT abdomen pelvis:Left-sided nephrostomy catheter with the distal loop in the left lower pole renal collecting system. There is no evidence of nephrolithiasis or hydronephrosis. Multiple bilateral renal cysts measuring up to approximately 2.0 cm. Hepatic steatosis. Distal colon diverticulosis. - UA: 3+ leukocyte esterase, 169 WBCs, few bacteria - urine culture ordered, however, culture reports from [facility] seen on patient's mobile device showing Klebsiella oxytoca probable ESBL, > [id number] CFU - IV meropenem - we will consult social media manager to set up home health for IV antibiotics once culture and sensitivity results are available Hypertension CAD s/p CABG - amlodipine 5 mg Depression, likely MDD - fluoxetine 20 mg PUD prophylaxis: protonix 40mg DVT prophylaxis: Levonox 40mg Goals of care: Full code, discussed for >16 minutes on 09/01/24 Plan discussed with patient Plan discussed with Dr. Christensen Plan discussed with: Patient, Other (RN) My Orders My Orders Orders - BELINDA FINNEY RESIDENT Procedure Category Date Status Time Urine Bacterial KILLIAN 09/01/24 In Process Culture 07:56 Cardiac DIET 09/01/24 Transmitted Diet-2gna,Lofat,Lochol Lunch Meropenem 1gm Ivpb PHA 09/01/24 Logged (Merrem 1gm/ Ns) 14:00 Amlodipine Tablet PHA 09/02/24 In Process (Norvasc Tablet) 10:00 Fluoxetine Capsule PHA 09/02/24 In Process (Prozac Capsule) 10:00 Date of Service: Sep 01, 2024 Billing Provider: JJ CHRISTENSEN MD Common Visit Codes: [id number] INP/OBS CARE(HIGH) Coding Comment Comment I saw and evaluated the patient. I reviewed the residents note and agree with findings and plan as documented in the residents note. BELINDA FINNEY RESIDENT Sep 01, 2024 12:31 JJ CHRISTENSEN MD Sep 01, 2024 12:53
[2024-09-01] MEDS: FLUoxetine HCL 20 MG CAP PO ONE (13:04)
[2024-09-01] MEDS: amLODIPine BESYLATE 5 MG TAB PO ONE (13:05)
[2024-09-01] MEDS: MEROPENEM 1GM IVPB 50 ML IV SCH (15:40)
[2024-09-01] MEDS: MELATONIN 5 MG TAB PO ONE (22:00)
[2024-09-02 01:00] VITALS: BP 137/83; PULSE 74; RESP 18; TEMP 97.7; O2SAT 96
[2024-09-02 05:00] VITALS: BP 149/105; PULSE 78; RESP 19; TEMP 97.9; O2SAT 98
[2024-09-02] MEDS: PANTOPRAZOLE 40 MG TAB PO SCH (06:00)
[2024-09-02 07:02] LABS: Basophils # (auto) 0 10 ^3/uL (0-0.2); Basophils % (auto) 0.5 % (0.0-2.0); Eosinophils # (auto) 0.4 10 ^3/uL (0-0.8); Eosinophils % (auto) 5.7 % (0.0-7.0); Hematocrit 42.6 % (41.0-53.0); Hemoglobin 14.7 g/dL (13.5-17.5); Lymphocytes # (auto) 2.1 10 ^3/uL (0.4-5.4); Lymphocytes % (auto) 28.2 % (10.0-50.0); Mean Corpuscular Hemoglobin 30.4 pg (28.0-32.0); Mean Corpuscular Hgb Conc. 34.6 g/dL (32.0-36.0); Mean Corpuscular Volume 87.8 fL (80.0-100.0); Monocytes # (auto) 0.6 10 ^3/uL (0-1.3); Monocytes % (auto) 7.6 % (0.0-12.0); Neutrophils # (auto) 4.3 10 ^3/uL (1.6-8.6); Nucleated Red Blood Cells % 0.1 %; Platelet Count (auto) 244 10^3/uL (140-450); Red Blood Cells 4.85 10^6/uL (4.5-5.90); Red Cell Distribution Width 15.2 % (11.8-14.3); White Blood Cell 7.5 10^3/uL (4.4-10.8)
[2024-09-02 08:00] VITALS: PULSE 70; RESP 18; O2SAT 97
[2024-09-02 09:00] VITALS: BP 141/86; PULSE 70; RESP 18; TEMP 98.1; O2SAT 97
[2024-09-02] MEDS: FLUoxetine HCL 20 MG CAP PO SCH (10:00)
[2024-09-02] MEDS: amLODIPine BESYLATE 5 MG TAB PO SCH (10:00)
[2024-09-02] MEDS: amLODIPine BESYLATE 5 MG TAB PO ONE (10:45)
[2024-09-02 13:00] VITALS: BP 145/100; PULSE 82; RESP 16; TEMP 97.8; O2SAT 98
[2024-09-02] MEDS: ERTAPENEM SOD INJ 1 GM in SODIUM CHL 0.9% 50 ML IV SCH (15:09)
--- NOTE | 2024-09-02 15:45 | DVHDSRES ---
Discharge Summary Date of Admission Resident Creating Document: BELINDA FINNEY RESIDENT Aug 31, 2024 at 21:59 Date of Discharge: Sep 02, 2024 Labs/Diagnostic Data: Laboratory Results Test 09/02/24 06:38 09/01/24 09:44 09/01/24 04:20 08/31/24 13:59 White Blood Count 7.5 10^3/uL (4.4-10.8) Red Blood Count 4.85 10^6/uL (4.5-5.90) Hemoglobin 14.7 g/dL (13.5-17.5) Hematocrit 42.6 % (41.0-53.0) Mean Corpuscular Volume 87.8 fL (80.0-100.0) Mean Corpuscular Hemoglobin 30.4 pg (28.0-32.0) Mean Corpuscular Hemoglobin Concent 34.6 g/dL (32.0-36.0) Red Cell Distribution Width 15.2 % (11.8-14.3) Platelet Count 244 10^3/uL (140-450) Mean Platelet Volume 7.8 fL (6.9-10.8) Neutrophils (%) (Auto) 58.0 % (37.0-80.0) Lymphocytes (%) (Auto) 28.2 % (10.0-50.0) Monocytes (%) (Auto) 7.6 % (0.0-12.0) Eosinophils (%) (Auto) 5.7 % (0.0-7.0) Basophils (%) (Auto) 0.5 % (0.0-2.0) Neutrophils # (Auto) 4.3 10 ^3/uL (1.6-8.6) Lymphocytes # (Auto) 2.1 10 ^3/uL (0.4-5.4) Monocytes # (Auto) 0.6 10 ^3/uL (0-1.3) Eosinophils # (Auto) 0.4 10 ^3/uL (0-0.8) Basophils # (Auto) 0 10 ^3/uL (0-0.2) Nucleated Red Blood Cells 0.1 % Urine Color Light-yellow (Yellow) Urine Clarity Turbid (Clear) Urine pH 6.0 (5.0-9.0) Urine Specific [place] 1.018 (1.001-1.035) Urine Protein 1+ (Negative) Urine Ketones Negative (Negative) Urine Blood Negative /uL (Negative) Urine Nitrite Negative (Negative) Urine Bilirubin Negative (Negative) Urine Urobilinogen Normal mg/dL (Negative) Urine Leukocyte Esterase 3+ /uL (Negative) Urine RBC 14 /hpf (0 - 3) Urine WBC 169 /hpf (0 - 3) Urine WBC Clumps Present /hpf (None Seen) Urine Squamous Epithelial Cells None seen /hpf (<5) Urine Bacteria Few /hpf (None Seen) Urine Mucus Few (None Seen) Urine Glucose Normal mg/dL (Normal) Sodium Level 142 mmol/L (136-145) Potassium Level 4.1 mmol/L (3.5-5.1) Chloride Level 108 mmol/L (98-107) Carbon Dioxide Level 30 mmol/L (20-31) Anion Gap 4 (5-15) Blood Urea Nitrogen 21 mg/dL (9-23) Creatinine 1.18 mg/dL (0.700-1.30) Glomerular Filtration Rate Calc 72 mL/min (>90) BUN/Creatinine Ratio 17.8 (10.0-20.0) Serum Glucose 119 mg/dL (74-106) Hemoglobin A1c 5.7 % A1C (<5.7) Calcium Level 10.2 mg/dL (8.7-10.4) Total Bilirubin 0.7 mg/dL (0.2-1.0) Aspartate Amino Transferase (AST) 21 U/L (13-40) Alanine Aminotransferase (ALT) 38 U/L (7-40) Alkaline Phosphatase 53 U/L (46-116) Total Protein 7.4 g/dL (5.7-8.2) Albumin 4.6 g/dL (3.2-4.8) Vitamin B12 Level 552 pg/mL (211-911) Vitamin D 25-Hydroxy 34.9 ng/mL (30.0-100) Thyroid Stimulating Hormone (TSH) 1.22 uIU/mL (0.55-4.78) Lactic Acid Level 1.7 mmol/L (0.4-2.0) Other Laboratory Tests 09/02/24 06:38 09/01/24 04:20 Brief Hx & Hospital Course: Patient is a 54-year-old male with past medical history of hypertension, dyslipidemia, COPD, moderate-severe left-sided hydronephrosis s/p nephrostomy tube, CAD s/p CABG 10 years ago, gout, recurrent UTIs, who came in at the instruction of his urologist. According to the patient, he is getting a ureteral surgery done at [facility] [place], when he went to get preoperative lab work done, he was noted to have UA positive for UTI, urine culture showing Klebsiella oxytoca probable ESBL therefore he was instructed by the operating surgeon to treat the infection. Of note, patient reports he has been taking Macrobid for the past 1 month. Patient denies having any dysuria symptoms. Patient states he is also scheduled to get angiography with possible stenting after he is done with his urologic procedure. Hospital course: CT abdomen pelvis showed left-sided nephrostomy catheter with distal loop in the lower pole renal collecting system. There was no evidence of nephrolithiasis or hydronephrosis. Multiple bilateral renal cysts measuring up to approximately 2 cm. Hepatic steatosis. Distal colon diverticulosis. UA showed 3+ leukocyte esterase, 169 WBCs and few bacteria. Patient was started on IV ertapenem and social service director were consulted to set up home health for IV antibiotics for 13 days. Patient also received a midline. During hospitalization blood pressure was controlled initially with amlodipine 5 mg and eventually with amlodipine 10 mg. Home medication fluoxetine 20 mg was also continued. On the day of discharge, patient appeared well, had stable vital signs and a good appetite. Denied any active ongoing pain, discomfort. His hospital course was uncomplicated. General Appearance: Cooperative. Well developed. Well nourished. NAD Head Exam: Normal inspection Neck Exam: Normal inspection. Non-tender. Normal alignment Pulmonary/Respiratory: Chest non-tender. Clear bilateral breath sounds, no crackles, no wheezing. Cardiovascular/Chest: Regular rate and rhythm. No murmurs. No JVD. Peripheral Pulses: 2+ Radial (R). 2+ Radial (L). 2+ Pedal (R). 2+ Pedal (L) Abdominal Exam: Normal bowel sounds. Soft. normal abdomen, no visible veins, Nontender. No hepatospenomegaly. No masses Ankle Exam: Negative ankle edema Lower extremities: Negative lower extremity edema Neuro/Mental Status: A&O x4. Coherent. Thoughts/Psych: Normal thought pattern. Appropriate mood and affect. Good judgement and insight Skin Exam: Normal inspection. Normal color. Warm. Dry Operations or Procedures CT ABDOMEN AND PELVIS WITH CONTRAST CLINICAL HISTORY: Lt flank pain, s/p neprostomy tube TECHNIQUE: Multidetector CT of the abdomen was performed from lung bases to pubic symphysis. Imaging was performed with IV contrast. Axial, coronal and sagittal multiplanar reformats were obtained from the axial data set by the technologist. 100 cc of Omnipaque 300 contrast was injected intravenously. Radiation optimization: All CT scans at this facility use at least one of these dose optimization techniques: automated exposure control mA and/or kV adjustment per patient size (includes targeted exams where dose is matched to clinical indication) or iterative reconstruction. Radiation Dose Information: CT Dose: CTDI volume is 21 mGy. Dose-length product is 2420 mGy*cm Comparison: CT CT AB PEL WO CON-NO ORAL OR IV on DOS: 06/30/24, CT CT AB PELVIS W WO CON-IV ONLY on DOS: 05/05/24 FINDINGS: There is a left-sided nephrostomy tube with the distal loop in the left lower pole renal collecting system. There is no evidence of renal nephrolithiasis or significant hydronephrosis. There are multiple bilateral renal cysts measuring up to approximately 2 cm. There is no discrete renal lesion. There is diffuse fatty infiltration of the liver. The gallbladder, pancreas, adrenal glands, and spleen appear within normal limits. There is no evidence of abdominal lymphadenopathy. There is no free fluid or free air. The small and large bowel loops demonstrate normal caliber. There are diverticula in the distal colon without evidence of acute diverticulitis. The abdominal aorta and IVC appear within normal limits. There is no evidence of a ureteral calculus or hydroureter. Bladder is poorly filled limiting evaluation. Pelvic organ appears within normal limits. There is no evidence of a pelvic mass or lymphadenopathy. There is no free fluid collection. Lung bases are clear. There is no acute osseous abnormality. IMPRESSION: 1. Left-sided nephrostomy catheter with the distal loop in the left lower pole renal collecting system. There is no evidence of nephrolithiasis or hydronephrosis. 2. Multiple bilateral renal cysts measuring up to approximately 2.0 cm. 3. Hepatic steatosis. 4. Distal colon diverticulosis. Condition at Discharge: Good Final Diagnosis/Problems List Acute complicated cystitis S/p nephrostomy tube placement on the left Hypertension CAD s/p CABG Depression, likely MDD Discharge Disposition: Home with Health Services Discharge Instruct/Medications Diet: Cardiac 2g Na,low cholest Activity: No Restrictions, As Tolerated Follow Up/Referral: please follow up with PCP in 1-2 weeks Medications: ertapenem 1g daily IV via home health for 13 days Discharge Statement: "Patient was advised to return to the ER or call 911 if any headaches, dizziness, shortness of breath, chest pain, abdominal pain, bleeding, fevers, or worsening of medical condition. Patient was counseled about treatment plan, medications, possible side effects, patientverbalized understanding. All questions were answered to the best of my ability. This discharge took greater then 30 minutes in planning, reviewing documentation, counseling the patient, and discussing with other team members." ASSESSMENT ASSESSMENT Assessment Acute complicated cystitis S/p nephrostomy tube placement on the left Hypertension CAD s/p CABG Depression, likely MDD Date of Service: Sep 02, 2024 Billing Provider: JJ CHRISTENSEN MD Common Visit Codes: [id number] INP/OBS CARE(HIGH) Coding Comment Comment I saw and evaluated the patient. I reviewed the residents note and agree with findings and plan as documented in the residents note. BELINDA FINNEY RESIDENT Sep 02, 2024 15:45 JJ CHRISTENSEN MD Sep 02, 2024 20:38
[2024-09-02 16:36] VITALS: BP 140/97; PULSE 76; RESP 18; TEMP 97.6; O2SAT 97
[2024-09-03] MEDS ORDERED: amLODIPine BESYLATE 5 MG TAB PO SCH (10:00)
[2024-09-03] MEDS ORDERED: ERTAPENEM SOD INJ 1 GM in SODIUM CHL 0.9% 50 ML IV SCH (10:00)
== END 2024-09-02 18:38 | disposition home health service (06) | DRG 463 ==
LOC: ER 11:21 → OVERFLOW 21:59 → CENTRAL 09-01 17:37
PROVIDERS: ADMIT Student in an Organized Health Care Education/Training Program; ATTEND Student in an Organized Health Care Education/Training Program
PROC: 05HF33Z Insertion of Infusion Device into Left Cephalic Vein, Percutaneous Approach (ICD-10-PCS; principal; 2024-09-02)
PROC: B54NZZA Ultrasonography of Left Upper Extremity Veins, Guidance (ICD-10-PCS; 2024-09-02)
DX: N30.00 Acute cystitis without hematuria (principal); E86.0 Dehydration; I10 Essential (primary) hypertension; M10.9 Gout, unspecified; I25.10 Atherosclerotic heart disease of native coronary artery without angina pectoris; F32.9 Major depressive disorder, single episode, unspecified; J44.9 Chronic obstructive pulmonary disease, unspecified; Z93.6 Other artificial openings of urinary tract status; Z95.1 Presence of aortocoronary bypass graft; Z79.899 Other long term (current) drug therapy; Z79.82 Long term (current) use of aspirin
CPT/HCPCS: 36415; 74178; 80048; 80053; 81001; 82306; 82607; 83036; 83605; 84443; 85025; 87040; 87086; 87088; 87186; G0378; J1335; J2185